=== PATIENT | female | born 1965 | race Caucasian/White ===

== ENCOUNTER 2021-03-15 11:34 | Emergency (ER) | payer OTHER, SELFPAY ==
[2021-03-15 11:41] VITALS: BP 141/68; PULSE 82; RESP 16; TEMP 36.6; O2SAT 96
--- NOTE | 2021-03-15 12:00 | DI.RAD_ITS ---
Exam(s) XR HAND RT COMPLETE EXAM: XR HAND RT COMPLETE CLINICAL HISTORY: jammed 3rd digit, dip pain. TECHNIQUE: 2D digital imaging was performed. COMPARISON: No exams were available for comparison FINDINGS: BONES: No acute fracture is present. No bony destructive lesion is seen. JOINTS: No dislocation present. interphalangeal joint space narrowing and periarticular spurring. SOFT TISSUE: Normal. IMPRESSION: Degenerative changes. No evidence of fracture. DATA REPOSITORY: RADIATION DOSE DELIVERED:
--- NOTE | 2021-03-15 12:13 | ED.GENADUL_ITS ---
Discharge Plan Disposition Patient Disposition: HOME Condition: Stable Discharge Details Chief Complaint: Orthopedic Clinical Impression: Finger injury Primary Care Provider: None,None ED Provider: Fidencio Metz Home Meds and New Rx's Prescriptions: No Action No Known Home Meds RF: 0 Discharge Instructions Instructions: Finger Sprain (ED) Additional Instructions: Wear splint as needed, advance activity as tolerated. Cool and/or warm compresses every 2 hours for 20 minutes. [id number] medications as Tylenol and/or Motrin as directed for discomfort. Please watch for new or worsening symptoms and return to the ER for any concerns. If symptoms persist for 3-5 days, I do recommend reaching out your primary care provider to discuss outpatient reevaluation. Medical Decision Making 55-year-old female presents after injuring her finger jamming it into the wood on Sunday. Neuro, vascular, tendon intact. Skin intact. No signs of infection. Diffuse discomfort and swelling to the DIP joint of the third right digit. Will obtain x-ray and reassess X-ray reveals degenerative changes, no acute fracture. Discussed findings with patient. Placed into a finger splint. Standard discharge and return precautions given. This documentation was generated using [employer] dictation system, please disregard any oddities of phrase or misspellings. Imaging Data Radiologic Study: Attestation: I personally reviewed and interpreted this imaging study as follows: Imaging: X-Ray Radiologist's impression: XR HAND RT COMPLETE EXAM: XR HAND RT COMPLETE CLINICAL HISTORY: jammed 3rd digit, dip pain. TECHNIQUE: 2D digital imaging was performed. COMPARISON: No exams were available for comparison FINDINGS: BONES: No acute fracture is present. No bony destructive lesion is seen. JOINTS: No dislocation present. interphalangeal joint space narrowing and periarticular spurring. SOFT TISSUE: Normal. IMPRESSION: Degenerative changes. No evidence of fracture. HPI General Mode of arrival: ambulatory . Date/Time Provider Initiated Documentation: 03/15/21 11:51 . Limitations to Documentation: no limitations . Information obtained by: patient . HPI Narrative: This is a 55-year-old female, [id number], denies significant past medical history, presenting for right middle finger injury. Patient states that on Sunday she was stacking wood, jammed her finger, did not notice much pain at the time but woke up the next morning with increased pain and swelling. She has taken [id number] Motrin with mild relief. She denies any sliver or break of the skin. Denies redness, warmth, fever. Reports the pain is mild at rest but worse with movement and does radiate up her hand with movement. Denies numbness, tingling, weakness. Denies any other injuries. Related Data Home Medications Medication Instructions Recorded Confirmed Unknown [No Known Home Meds] 03/15/21 03/15/21 Allergies Allergy/AdvReac Type Severity Reaction Status Date / Time tramadol Allergy Intermediate Hives Unverified 03/15/21 11:47 oxycodone AdvReac Intermediate Unverified 03/15/21 11:46 General Stated Complaint: Orthopedic AFSANEH: 4 Review of Systems Constitutional Constitutional: Denies fever(s) Musculoskeletal Musculoskeletal: Denies deformity, Reports arthralgias, Reports joint swelling, Denies numbness, Reports stiffness and Denies tingling Integumentary/Breasts Skin/Breast: Denies rash Neurologic Neurologic: Denies numbness and Denies tingling [facility], LAT[facility] Social History Smoking/Tobacco Use Status: Current every day Tobacco Type: cigarettes Smoking risk assessment performed?: Yes Alcohol Intake: never Substance use type: does not use Exam Const General: cooperative, healthy appearing, comfortable and no acute distress Orientation: alert and awake [facility] Head: normal to inspection, normocephalic and atraumatic Eyes General: appearance normal, both eyes and all related structures Conjunctivae: conjunctivae normal Neck Neck: normal visual inspection, trachea midline and supple Resp Effort & Inspection: normal respiratory effort and able to speak in complete sentences Cardio Rate: regular rate Rhythm: regular rhythm Skin General skin exam: no rashes or lesions noted Neuro General: patient alert, patient awake, moves all extremities and no focal motor deficits Cognition: normal cognition Speech: speech normal Gait: normal gait Motor: muscle tone normal throughout Sensory Exam: no sensory deficits noted Extrem General: full ROM and capillary refill normal Other: Right upper extremity, left third digit, DIP joint with mild swelling and discomfort to palpation worse on the medial aspect. 5 out of 5 strength. Skin intact. No warmth or erythema. Neuro, vascular, tendon intact. Normal radial pulse and capillary refill. Psych Appearance: grossly normal Mental Status: mental status grossly normal Course Vital Signs Vital signs: Vital Signs Temperature 36.6 C 03/15/21 11:41 Pulse 82 03/15/21 11:41 Respiratory Rate 16 03/15/21 11:41 Blood Pressure 141/68 H 03/15/21 11:41 Pulse Oximetry 96 03/15/21 11:41 Temperature 36.6 C 03/15/21 11:41 Temperature Source Skin 03/15/21 11:41 Pulse 82 03/15/21 11:41 Respiratory Rate 16 03/15/21 11:41 Respiratory Effort Non-Labored 03/15/21 11:41 Blood Pressure 141/68 H 03/15/21 11:41 Blood Pressure Position Sitting 03/15/21 11:41 Pulse Oximetry 96 03/15/21 11:41 Oxygen Delivery Method Room Air 03/15/21 11:41 Oxygen Flow Rate 0 03/15/21 11:41 Pain Level 3 03/15/21 11:48
== END 2021-03-15 13:13 | disposition home or self-care (01) ==
PROVIDERS: Emergency Provider Physician Assistant
DX: S69.81XA Other specified injuries of right wrist, hand and finger(s), initial encounter (principal); W22.8XXA Striking against or struck by other objects, initial encounter
CPT/HCPCS: 99283; 73130

== ENCOUNTER 2021-06-20 09:40 | Outpatient (CLI) | payer OTHER, SELFPAY ==
--- NOTE | 2021-06-20 09:30 | RT.EKG_ITS ---
APPROVED REPORT Exam: Resting ECG Reason for Exam: Chest pain Patient Location: O HR:75 bpm ECG Measurements Heart Rate 75 AXIS NJ 143 P 17 QRSd 86 QRS 57 QT 371 T 36 QTc 416 Conclusion Sinus rhythm...normal P axis, V-rate 60- 99 Poor R wave progression
== END 2021-06-20 09:41 | disposition home or self-care (01) ==
LOC: DI.CM 09:40
PROVIDERS: Visit Provider Nurse Practitioner Family
DX: R07.9 Chest pain, unspecified (principal)
CPT/HCPCS: 93010

== ENCOUNTER 2021-06-20 15:03 | Outpatient (REF) | payer OTHER, SELFPAY ==
[2021-06-20 16:38] LABS: Abs Immature Grans 0.02 10^3/uL (0.0-0.06); Absolute Basophil Count 0.03 10^3/uL (0.0-0.2); Absolute Lymphocyte Count 2.26 10^3/uL (1.2-3.4); Absolute Monocyte Count 0.55 10^3/uL (0.1-0.8); Absolute Neutrophil Count 2.66 10^3/uL (1.2-6.7); Basophils % 0.5; Eosinophils % 1.8; HCT 45.7 % (36.0-46.0); HGB 15.8 g/dL (11.2-15.7); Immature Grans % 0.4; Lymphocytes % 40.2; MCHC 34.6 % (32.0-36.0); MCV 89.8 fL (80-95); MPV 10.3 fL (8.0-11.0); Monocytes % 9.8; Neutrophils % 47.3; Nucleated RBC 0 %; Platelet Count 280 10^3/uL (130-400); RBC 5.09 10^6/uL (3.93-5.22); RDW 12.3 % (11.7-14.6); RDW-SD 40.8 fL; WBC 5.62 10^3/uL (4.4-10.8)
[2021-06-20 16:59] LABS: Bilirubin Negative (Negative); Blood Trace-intact (Negative); Clarity Clear (Clear); Glucose Negative (Negative); Ketones Negative (Negative); Leukocyte Esterase Negative (Negative); Nitrite Negative (Negative); Urobilinogen 0.2 EU/dL (Up TO 0.2)
[2021-06-20 17:05] LABS: Bacteria Few HPF (Negative); C & S Indicated? No/Sq. Contamination; Casts Negative LPF (Negative); Crystals Negative HPF (Negative); Epithelial Cells Moderate HPF (Negative); Mucus Negative (Negative)
[2021-06-20 17:27] LABS: ALT 22 U/L (14-59); AST 13 U/L (15-37); Albumin 4.2 g/dL (3.4-5.0); Alkaline Phosphatase 58 U/L (46-116); Anion Gap 9.1 mmol/L (3-11); BUN 12 mg/dL (7-18); Bilirubin, Total 0.6 mg/dL (0.2-1.0); CO2 25.9 mmol/L (21.0-32.0); CREATININE 0.8 mg/dL (0.55-1.02); Chloride 105 mmol/L (98-107); Glucose 88 mg/dL (74-106); Lipase 53 U/L (73-393); Potassium 4.6 mmol/L (3.5-5.1); Sodium 140 mmol/L (136-145); Total Protein 7.5 g/dL (6.4-8.2)
== END 2021-06-20 15:04 | disposition home or self-care (01) ==
LOC: NCHCN 15:03
PROVIDERS: Visit Provider Nurse Practitioner Family
DX: R10.9 Unspecified abdominal pain (principal); R39.9 Unspecified symptoms and signs involving the genitourinary system
CPT/HCPCS: 80053; 83690; 81003; 81015; 85025

== ENCOUNTER 2021-06-22 01:08 | Outpatient (CLI) | payer OTHER, SELFPAY ==
--- NOTE | 2021-06-22 07:30 | DI.MAMMO_ITS ---
Exam(s) MAMMO SCREENING EXAM: MAMMO SCREENING CLINICAL HISTORY: screening,z12.39 TECHNIQUE: Mammograms were interpreted according to the usual protocol including computer analysis w [employer] CAD system, tomosynthesis and C-view imaging. COMPARISON: FINDINGS: Breasts are of heterogeneously increased density with fairly symmetrical distribution of fibroglandul ar tissue. No dominant mass or clumped microcalcification is identified in either breast. Today's e xamination is a baseline examination. There is of focal area of nodularity projected in the posterior central breast parenchyma on the MLO view of the right breast. This may correspond to an area of rounded radiodensity seen on tomosynthes is views only in the central lateral portion of the right breast on CC view. Additional mammographic views and breast ultrasound are requested to characterize this possible small mass. IMPRESSION: Additional mammographic views of the right breast and right breast ultrasound are requested as descri bed above to evaluate possible small well-circumscribed right breast mass. BI-RADS Category 0 - Assessment Incomplete: Need additional imaging evaluation Breast Density - Category C - Heterogeneously dense
== END 2021-06-22 01:28 ==
PROVIDERS: Visit Provider Nurse Practitioner Family
DX: Z12.31 Encounter for screening mammogram for malignant neoplasm of breast (principal); R92.8 Other abnormal and inconclusive findings on diagnostic imaging of breast
CPT/HCPCS: 77063; 77067

== ENCOUNTER 2021-07-06 00:47 | Outpatient (CLI) | payer OTHER, SELFPAY ==
--- NOTE | 2021-07-06 13:30 | DI.MAMMO_ITS ---
Exam(s) MG MAMMO SCREEN CALL BACK UNI US BREAST RT COMPLETE EXAM: MG MAMMO SCREEN CALL BACK UNI and U/S breast RT limited CLINICAL HISTORY: RT BREAST MASS. TECHNIQUE: Craniocaudal and mediolateral oblique Full Field Digital Mammography views of the right b reast with Computer Aided Diagnosis followed by Tomosynthesis and right breast ultrasound. COMPARISON: Priors available for comparison. FINDINGS: Mammography/Tomosynthesis: Masses/Architectural Distortion: On the spot compression CC view the ovoid density in the outer right breast persists. Microcalcifictions: No suspicious pleomorphic-type are seen. Skin Thickening/Nipple Retraction: None. Right breast US: The upper outer quadrant of the right breast was evaluated sonographically. Echotexture: Normal appearance of the glandular tissue. Shadowing: No suspicious foci. Cyst: At the 9 o'clock position of the right breast there is a 5 x 4 x 2 mm cyst present. At the 10 o'clock position 3 cm from the nipple there is a 5 x 6 x 4 mm simple cyst. At the 12 o'clock positio n 1 cm from the nipple there is a 5 x 4 x 5 mm well-circumscribed hypoechoic nodule present. No inte rnal blood flow is seen. There is a collection of cysts at the 11 o'clock position of the right azar st 3 cm from the nipple. Solid lesions: None seen. Ductal dilation: None. IMPRESSION: 1. No definite evidence for malignancy at this time. 2. A six-month follow-up right mammogram and ultrasound are requested for re-evaluation. 3. The findings were discussed with the patient on the date of the examination. BI-RADS Category 3 - 6 month - Probably Benign Finding: Recommend follow-up imaging in 6 months Breast Density - Category C - Heterogeneously dense Breast density Category C or D implies that the patient has dense breast tissue. Dense breast tissue can make it harder to find cancer on a mammogram. Dense breast tissue is also associated with an incr eased risk of breast cancer. This information about the result of the mammogram report was provided to the patient to raise their awareness. Use this report when you speak with the patient about their risks for breast cancer, which includes their family history. At that time, you may recommend additional screening tests (Ultrasoun d or MRI) as these tests may add significant information. A negative radiographic report should not delay biopsy if a dominant or clinically suspicious mass is present. Up to ten percent of cancers are not identified on mammography. A negative report may reinforce clinical impression. Adenosis and dense breasts may obscure an underlying neoplasm. False positive reports average 6 to 10%. Patient will receive a letter notifying them of these results.
== END 2021-07-06 01:07 ==
PROVIDERS: PCP Family Medicine; Visit Provider Nurse Practitioner Family
DX: R92.8 Other abnormal and inconclusive findings on diagnostic imaging of breast (principal); N60.01 Solitary cyst of right breast; N63.15 Unspecified lump in the right breast, overlapping quadrants
CPT/HCPCS: 76642; 77063; 77067

== ENCOUNTER 2021-08-03 18:20 | Outpatient (REF) | payer OTHER, SELFPAY ==
[2021-08-04 16:34] LABS: COVID-19 RT-PCR UVMMC Result Negative (Negative)
== END 2021-08-03 18:21 | disposition home or self-care (01) ==
LOC: LBN 18:20
PROVIDERS: PCP Family Medicine; Visit Provider Physician Assistant Medical
DX: Z20.822 Contact with and (suspected) exposure to COVID-19 (principal); R05.8 Other specified cough; R09.89 Other specified symptoms and signs involving the circulatory and respiratory systems; J32.9 Chronic sinusitis, unspecified
CPT/HCPCS: U0003

== ENCOUNTER 2021-11-04 02:00 | Outpatient (CLI) | payer OTHER, SELFPAY ==
[2021-11-04 14:42] LABS: Source Nasal/Nares
[2021-11-04 19:20] LABS: COVID-19 PCR Negative (Negative)
== END 2021-11-04 02:01 | disposition home or self-care (01) ==
LOC: LBO 02:00
PROVIDERS: Surgery; PCP Family Medicine; Visit Provider Surgery
DX: Z20.822 Contact with and (suspected) exposure to COVID-19 (principal)
CPT/HCPCS: 87635

== ENCOUNTER 2021-11-07 07:21 | Day surgery (SDC) | payer OTHER, SELFPAY ==
--- NOTE | 2021-11-07 06:37 | COLE_ITS ---
Colonoscopy Report Date of procedure: 11/07/21 Pre-op diagnosis general: Colon Cancer Screening and Family history Post-op diagnosis procedure note: other (gastritis, reflux, polyps and diverticulosis) Procedure: Colonoscopy Surgeon: Marci Christian Anesthesia Type: General:No Airway Estimated blood loss (mL): 3 Pathology: other (Duodenal, gastroic and GE junction bx; ascending, transverse and sigmoid polyps) Complications: None Disposition: same day Indications: Pt seen at the request of PCP regarding colon cancer screening. Pt has never had a colon cancer screening before.? Denies problems with constipation, diarrhea.? No pain or difficulty with bowel movements.? Denies rectal bleeding.? Mother has CRC cancer.? ? Pt has not had any weight loss.? Their appetite is good.? No heart, lung, or kidney problems. No heartburn or indigestion. No prior colo- rectal surgery.? No prior NELLY.? No problems with anesthesia in the past. pt notes she has been passing gas more lately.? she has had x2 C-sections and NELLY.? She has lots of scar tissue in pelvis.? +smoker? occ PONV w/ anethesia.? H/I if she eats spicy foods.? She had h pylori in the past.? She notes occ H/I.? occ notes a bump on the distant from the anus.? comes/goes.? ? denies bleedin g/pain/discharge.? ?screening colonosocpy consultation. There is a family history of colon cancer +. Prep: Miralax/Dulcolax Procedure Start Time: 09:18 Procedure End Time: 09:49 Retraction Time: 16 minutes Findings: Inflammation of the small bowel and antrum Evidence of reflux Multiple polyps Sigmoid diverticulosis Procedure Description: After informed consent was obtained the patient was take to the procedure room and placed in a supine position. Monitors were applied and a time out was done. The patients name, date of , procedure type, allergies to medication s and metal in their body was reviewed. A bite block was placed and the patient was sedated. Once sedated and comfortable the gastroscope was advanced through the oropharynx which was grossly normal into the esophagus. The proximal and mid- esophagus were normal. In the distal esophagus there was evidence of reflux noted. The scope was advanced into the stomach and through the pylorus into the 3rd portion of the duodenum. The duodenum was noted to have some mild inflammation in the 1st portion. Biopsies were done. The scope was retracted back into the stomach. There was mild inflammation noted in the antrum. Biopsies were done to rule out H. pylori. There were no ulcers. The scope was retro- flexed. The cardia and fundus were noted to be normal. There was no hiatal hernia noted. The scope was retracted back into the esophagus and biopsies were done of the GE junction to rule out Mckenna's. The Z line was regular. The GE junction was at 38 cm. While the patient was still sedated they were placed in a left decubitous position. A rectal exam was done. External exam was normal. Internal exam revealed a normal sphincter tone and no palpable masses. The scope was then introduced and retro-flexed. Grade 1 internal hemorrhoids were identified. There were no masses or polyps identified on retroflexion. The scope was then advanced to the cecum without difficulty. The ileocecal valve and appendiceal orifice were identified. The prep was good. The scope was then slowly retracted over 16 minutes back into the rectum. Polyps were removed with cold forceps in the ascending colon x1, transverse colon x1, sigmoid colon x4. There was mild sigmoid diverticulosis noted. The scope was removed and the patient was woken up and taken back to Same day surgery in stable condition. The patient tolerated the procedure well and there were no immediate complications. Follow up: 3-5 years depending on pathology results
--- NOTE | 2021-11-07 06:38 | W.PM.DSUDISC ---
Discharge Plan Disposition Patient Disposition: HOME Condition: Good Discharge Details Reason For Visit: Colonoscopy Attending Provider: Marci Christian Primary Care Provider: Arcadio Thomas Home Meds and New Rx's Prescriptions: Continued omeprazole 20 mg capsule,delayed release(DR/EC) 20 mg PO DAILY Qty: 30 1RF Rx Instructions: Take 1 capsule daily Discharge Instructions Instructions: Colorectal Polyps (DC), Diverticulosis (DC), Diet for Stomach Ulcers and Gastritis (ED), Gastritis (DC), GERD (Gastroesophageal Reflux Disease) (DC) Additional Instructions: Findings: inflammation in the stomach and reflux Polyps and diverticulosis Follow up: 3-5 years Please call if you develop: fevers >101.5 Nausea or Vomiting Abdominal pain that is not transient Rectal bleeding that is more then a tbsp A hard abdomen and inability to pass gas DAY SURGERY UNIT POST ENDOSCOPY INSTRUCTIONS Instructions for everyone who is given Anesthesia: For your safety, please do the following for the next 24 Hours: a. Do not drive or operate dangerous equipment b. Do not drink alcohol beverages or use any recreational drugs for the first 24 hours or while taking pain medications. The medications in your body may have a reaction that can be dangerous. c. Do not make any important decisions or sign any important papers 1. Generally there are no restrictions on your activity after a day or so has gone by, but you may feel a bit fatigued for a few days. 2. After you arrive home you may have a light meal and return to a normal diet as you can tolerate it without feeling sick to your stomach. 3. After surgery, you may feel pain or discomfort. This should be only transient, but if it persists please contact your doctor. 4. If there are any questions regarding the findings of your procedure, please feel free to contact your doctor. 6. If you are unable to contact your doctor with a problem, contact the hospital at [phone]. 7. Continue all your regular medications unless directed otherwise. I understand the above instructions and have no questions. Signature of Patient or Responsible Adult Escort Date/Time Name of Responsible Adult Escort Signature of Nurse Date/Time Activity:: Activity as Tolerated Diet:: high fiber Discharge Orders Discharge Orders: Discharge Order (Routine); Ordered 11/07/21 Ordered By: Marci Christian
[2021-11-07 07:43] VITALS: BP 130/69; PULSE 96; RESP 18; TEMP 36.5; O2SAT 98
[2021-11-07] MEDS: Lactated Ringers 1,000 ML 80 ML IV (08:01)
--- NOTE | 2021-11-07 09:05 | ANES.PREOP_ITS ---
General Info Date of Service Date Performed: 11/07/21 Height: 5 ft 3 in Weight: 85.445 kg Body Mass Index (BMI): 33.3 Surgical Procedure: Operation Date: 11/07/21 09:05 Proposed Procedure Side Surgeon p Colonoscopy/Gastroscopy Marci Christian MD Meds Allergies and Home Medications Allergies Allergy/AdvReac Type Severity Reaction Status Date / Time tramadol Allergy Intermediate Hives Verified 11/07/21 07:47 oxycodone AdvReac Intermediate Verified 11/07/21 07:47 Home Medication Medication Instructions Recorded omeprazole 20 mg capsule,delayed 20 mg PO DAILY #30 cap 06/20/21 release Current Visit Medications: Current Medications Generic Name Dose Route Start Last Admin Trade Name Freq PRN Reason Stop Dose Admin Hyoscyamine Sulfate 0.125 mg 11/07/21 06:39 Hyoscyamine 0.125 Mg Sl/Oral/Chew SL DIRECTED PRN Ringer's Solution 1,000 mls @ 80 mls/hr 11/07/21 06:00 11/07/21 08:01 IV 12/04/21 23:59 80 mls/hr INFUSION MICHAEL Administration IV Miscellaneous Supplies 1 each 11/07/21 06:00 Iv Access IV 12/04/21 23:59 DIRECTED MICHAEL Ondansetron HCl 4 mg 11/07/21 06:39 Ondansetron 4 Mg/2 Ml Vial IVP Q4H PRN PRN Nausea / Vomiting Sodium Chloride 0 ml 11/07/21 06:00 Normal Saline Flush 10 Ml Syr IV 12/04/21 23:59 PRN PRN Sodium Chloride 0 ml 11/07/21 06:00 Normal Saline 10 Ml Vial IJ 12/04/21 23:59 DIRECTED PRN Sterile Water 0 ml 11/07/21 06:00 Water,Injection,Sterile 10 Ml Vial IJ 12/04/21 23:59 DIRECTED PRN PFSH Active Problems Active Problems: Problem Status Onset Code Personal history of nicotine dependence Z87.891 Screening for colon cancer Z12.11 Medical History Medical History COVID-19 09/05/21 GERD (gastroesophageal reflux disease) History of deviated nasal septum s/p sx Surgical History Surgical History History of X 2 Hx of nasal septoplasty S/P NELLY-BSO in [place]- benign etiology Tobacco Smoking/Tobacco Use Status: Current-Occasional Tobacco Type: cigarettes Second hand exposure: Yes Alcohol Alcohol Intake: former Substance Use Substance use: Never Substance use type: does not use Vital Signs and Lab Results Vital Signs Most Recent Vital Signs in EMR: Most Recent Vital Signs Temp Pulse Resp BP Pulse Ox 36.5 C 96 H 18 130/69 98 11/07/21 07:43 11/07/21 07:43 11/07/21 07:43 11/07/21 07:43 11/07/21 07:43 Lab Results Blood Type / Crossmatch: No Data to Display Complete Blood Count: No Data to Display Complete Metabolic Panel: No Data to Display Liver Function Panel: No Data to Display Coagulation Panel: No Data to Display Cardiac Panel: No Data to Display Arterial Blood Gas: No Data to Display Venous Blood Gas: No Data to Display Pancreas Panel: No Data to Display Thyroid Panel: No Data to Display Infectious Disease: Coronavirus (COVID-19)(PCR) Negative (Negative) 11/04/21 07:50 11/04/21 Coronavirus 2019 Source Nasal/Nares 11/04/21 07:50 11/04/21 Blood Cultures: No Data to Display Toxicology Panel: No Data to Display Anesthesia Assessment and Plan Anesthesia History Personal History: No History of Anesthesia Complications Family History: No Family History of Anesthesia Complications Exercise Tolerance Exercise Tolerance: Metabolic Equivalents>4 Pertinent Negatives Pertinent Negatives: No Symptoms of GERD Cardiac & Pulmonary Exam Cardiac Exam: Normal S1/S2 Heart Sounds Pulmonary Exam: Clear Bilateral Breath Sounds Implantable Cardiac Device Does patient have a Pacemaker or an ICD?: No Airway Exam Known Difficult Airway: No Mallampati Class: 2 Mouth Opening: Normal (> 3cm) Thyromental Distance: Greater than 3 cm Neck Range of Motion: Full ROM Neck Circumference: Thick Teeth Condition: Normal Dentition ASA Classification ASA Score: ASA 2 Emergency Case?: No NPO Status NPO Status: NPO Clears >2 hours, Solids >8 hours Anesthesia Plan Resuscitation Status: Full Code Anesthesia Technique: General Anesthesia Airway Planned: Natural Airway Monitors Used: Standard Monitors
[2021-11-07 09:07] VITALS: BMI 33.3
--- NOTE | 2021-11-07 09:20 | BOWEL_PTH ---
PATIENT: Ana Laura Coley LOC: [facility] U#:[id number] AGE/SX: 56/F ROOM: RE11/07/[address]: Marci Christian MD : [id number] BED: DIS: 11/07/2021 SPEC #: [id number] RECD: 11/07/21 12:49 STATUS: DWIGHT RE #: [id number] ADITI: 11/07/21 09:[address]: Marci Christian DEPT: Surgical Specimen RECD BY: Marianna Spann ENTERED: 11/07/21 12:52 SP TYPE: Bowel OTHR DR: Arcadio Thomas Tissues: 1 - BIOPSY BOWEL 2 - STOMACH BIOPSY 3 - ESOPHAGUS BIOPSY 4 - BIOPSY BOWEL 5 - BIOPSY BOWEL 6 - BIOPSY BOWEL Procedures: GROSS AND MICRO LEVEL 4 IMMUNOPEROXIDASE STAIN Comments: [id number]
[2021-11-07 09:59] VITALS: BP 103/73; PULSE 83; RESP 18; TEMP 36; O2SAT 95
[2021-11-07 10:32] VITALS: BP 136/78; PULSE 69; RESP 18; TEMP 36; O2SAT 99
--- NOTE | 2021-11-07 10:40 | W.ANESPOSTOP ---
Postoperative Evaluation Date, Time and Location Date Performed: 11/07/21 Time Performed: 10:32 Patient Location: Day Surgery Unit Vital Signs Most Recent Imported Vital Signs: Most Recent Vital Signs Temp Pulse Resp BP Pulse Ox 36.0 C L 69 18 136/78 99 11/07/21 10:32 11/07/21 10:32 11/07/21 10:32 11/07/21 10:32 11/07/21 10:32 Pain Score Most Recent Pain Score: Most Recent Pain Score Pain Level 0 11/07/21 10:32 Assessment Mental Status: Awake (Alert & Oriented to Patient Baseline) Airway and Respiratory Function: Patent airway with normal (patient baseline) respiratory exam Cardiovascular Function: Hemodynamically Stable Hydration Status: Adequately Hydrated Nausea & Vomiting: No Nausea or Vomiting Pain: Pt. Denies Any Pain Peripheral Nerve Block: Patient did not receive a nerve block
== END 2021-11-07 10:51 | disposition home or self-care (01) ==
LOC: SUR 07:22
PROVIDERS: PCP Family Medicine; Visit Provider Surgery
PROC: (CPT 45380; principal; 2021-11-07 09:00)
DX: Z12.11 Encounter for screening for malignant neoplasm of colon (principal); Z80.0 Family history of malignant neoplasm of digestive organs; K29.70 Gastritis, unspecified, without bleeding; K21.9 Gastro-esophageal reflux disease without esophagitis; K63.5 Polyp of colon; K57.30 Diverticulosis of large intestine without perforation or abscess without bleeding; K64.0 First degree hemorrhoids; B96.81 Helicobacter pylori [H. pylori] as the cause of diseases classified elsewhere
CPT/HCPCS: 45380; 43239; 88305; 88361

== ENCOUNTER 2021-12-23 07:27 | Outpatient (REF) | payer OTHER, SELFPAY ==
[2021-12-26 13:54] LABS: Helicobacter pylori Ag, Feces Negative (Negative)
== END 2021-12-23 07:28 | disposition home or self-care (01) ==
LOC: LBN 07:27
PROVIDERS: Visit Provider Surgery
DX: K29.70 Gastritis, unspecified, without bleeding (principal); B96.81 Helicobacter pylori [H. pylori] as the cause of diseases classified elsewhere
CPT/HCPCS: 87338

== ENCOUNTER → 2022-01-05 01:21 | Outpatient (CLI) | payer OTHER, SELFPAY ==
--- NOTE | 2022-01-05 09:00 | DI.US_ITS ---
Exam(s) MG MAMMO DIAGNOSTIC UNI US BREAST RT COMPLETE EXAM: MG MAMMO DIAGNOSTIC UNI-RIGHT AND COMPLETE RIGHT BREAST ULTRASOUND CLINICAL HISTORY: 3-6 mo f/u abnormal mammo of rt,abnl mammo,r92.8,z09. TECHNIQUE: Both CC and MLO views/mammographic images of the right breast were obtained with 3D tomos ynthesis technique and utilizing computer aided detection (CAD). COMPARISON: Prior mammograms were reviewed, the most recent being July 2021. Prior ultrasound July 2021 was also reviewed FINDINGS: DIAGNOSTIC RIGHT BREAST MAMMOGRAM: On the 3D MLO view there is an oval noncalcified nodule measuring 6 by 5 millimeters, approximately 6 cm in from nipple, less evident on the CC view. Also subtle suggestion of a slightly smaller noncal cified nodule more centrally on the MLO view. No other focal right breast mammographic findings. COMPLETE RIGHT BREAST ULTRASOUND: All 4 quadrants were scanned as well as the retroareolar region and right axilla. Compared to ultrasound of 07/06/2021. There are a total of 4 focal ultrasound findings: At the 11-12 o'clock position (2 cm from nipple) there is a lobulated slightly taller than wider 6 x 5 millimeter nodule exhibiting slightly increased through transmission but exhibiting solid internal echoes. This probably corresponds to one of the nodules seen on the MLO view. It exhibits minimal if any significant change from 07/06/2021. At the 9 o'clock position (4 cm from nipple) there is a round 4 x 4 millimeter microcyst which is unc hanged. At the 10 o'clock position there is a small wider than taller benign-appearing finding which has an a ppearance consistent with conglomeration of microcysts or septated microcyst, this measuring 5 by 3 m illimeters. At the 10 o'clock position there is another finding which was not evident on the prior ultrasound of July 2021. This is a slightly wider than taller oval nodule measuring 4 x 3 millimeters with angie ght back wall and slightly increased through transmission but exhibiting internal echoes. There are no other focal ultrasound findings in all 4 quadrants of the right breast. There is no significant adenopathy in the right axilla. IMPRESSION: 1. Findings on ultrasound as described individually above (total of 4 findings). Two of these are vi sible on mammography. 2. Appropriate follow-up is repeat ultrasound examination in 3 months to determine stability of these findings, particularly the finding at the 11-12 o'clock position and the more solid-appearing new fi nding at the 10 o'clock position. 3. Given that these findings are better seen on ultrasound than 3D mammography, I feel would be prude nt that her follow-up ultrasound in 3 months from now be a bilateral ultrasound study. The patient was informed of the findings and follow-up recommendations prior to leaving the [facility] today. BI-RADS Category 3 - 6 month - Probably Benign Finding: Recommend follow-up ULTRASOUND in 3 months Breast Density - Category B - Scattered areas of fibroglandular density Breast density Category C or D implies that the patient has dense breast tissue. Dense breast tissue can make it harder to find cancer on a mammogram. Dense breast tissue is also associated with an incr eased risk of breast cancer. This information about the result of the mammogram report was provided to the patient to raise their awareness. Use this report when you speak with the patient about their risks for breast cancer, which includes their family history. At that time, you may recommend additional screening tests (Ultrasoun d or MRI) as these tests may add significant information. A negative radiographic report should not delay biopsy if a dominant or clinically suspicious mass is present. Up to ten percent of cancers are not identified on mammography. A negative report may reinforce clinical impression. Adenosis and dense breasts may obscure an underlying neoplasm. False positive reports average 6 to 10%. Patient will receive a letter notifying them of these results.
== END ==
PROVIDERS: Visit Provider Nurse Practitioner Family
DX: R92.8 Other abnormal and inconclusive findings on diagnostic imaging of breast (principal); N63.11 Unspecified lump in the right breast, upper outer quadrant; N60.11 Diffuse cystic mastopathy of right breast
CPT/HCPCS: 76642; 77061; 77065; G0279

== ENCOUNTER 2022-07-10 09:01 | Emergency (ER) | payer OTHER, SELFPAY ==
[2022-07-10 09:03] VITALS: BP 143/83; PULSE 119; RESP 17; TEMP 36.9; O2SAT 98
--- NOTE | 2022-07-10 09:45 | DI.CT_ITS ---
Exam(s) CT ABDOMEN PELVIS W EXAM: CT ABDOMEN PELVIS W CLINICAL HISTORY: epigastric and left sided abdominal pain. TECHNIQUE: Imaging Protocol: Axial computed tomography images with coronal and sagittal reformatted images were created and reviewed CONTRAST MATERIAL: Intravenous: Omnipaque 350 Contrast volume:100 ml Oral: no COMPARISON: No exams were available for comparison FINDINGS: ABDOMEN: Lung Bases: Normal where visualized. Liver: Normal density. No measurable mass. Gallbladder and biliary tract: No radiodense calculus or dilation. Pancreas: Normal density, no abnormal calcifications or inflammatory process. Spleen: Normal. Kidneys: Normal size, contour and axis. No radiodense stones or obstructive uropathy. No masses seen. Incidental retroaortic left renal vein. Adrenal glands: No masses seen. Abdominal Aorta: Abdominal portion non-dilated. PELVIS: Bladder: No gross wall thickening. No calculi.No focal mass. Bowel: Mild sigmoid diverticulosis. No obstruction or bowel wall thickening. Appendix normal. Peritoneal cavity: No ascites, collection or mesenteric inflammatory response. Bones: Within normal limits for age. Reproductive organs: Status post hysterectomy. Lymph nodes: Unremarkable. Impression: Unremarkable CT scan of the abdomen and pelvis. RADIATION DOSE DELIVERED: 1,086.43mGy.cm Total DLP DATA REPOSITORY: All CT scans at this facility are submitted to the National Radiology Data Registry (NRDR) Dose Index Registry (DIR) with the [employer] (ACR). RADIATION OPTIMIZATION: All CT scans at this facility use at least one of these dose optimization te chniques: automated exposure control; mA and/or kV adjustment per patient size (includes targeted exa ms where dose is matched to clinical indication); or iterative reconstruction.
--- NOTE | 2022-07-10 09:45 | RT.EKG_ITS ---
APPROVED REPORT Exam: Resting ECG Reason for Exam: abdominal pain Patient Location: E HR:78 bpm ECG Measurements Heart Rate 78 AXIS AK 163 P 72 QRSd 77 QRS 46 QT 363 T 34 QTc 414 Conclusion Sinus rhythm...normal P axis, V-rate 60- 99
--- NOTE | 2022-07-10 09:46 | ED.GENADUL_ITS ---
Discharge Plan Disposition Patient Disposition: Home Condition: Stable Discharge Details Clinical Impression: Abdominal pain, Hematuria Primary Care Provider: Patricio Winston ED Provider: Slime Hernandez Home Meds and New Rx's Prescriptions: No Action No Known Home Meds Discharge Instructions Instructions: Abdominal Pain (ED) Additional Instructions: Your labs are reassuring here today. As we discussed, I am concerned that you may have recurrent gastritis based on history and discomfort. Please take the omeprazole that you have at home as previously prescribed. Please encourage hydration. Please follow-up with primary care in 1 to 2 weeks for reevaluation. If you develop fever/chills, increased pain, inability stay hydrated or other new/worsening symptom please seek care urgently once again. In regard to the small mount of blood in your urine, please discuss this further with your primary care. Referrals: Patricio Winston, [employer] [Primary Care Provider] - Discharge Data Discharge Date/Time-TO BE ENTERED AT DEPARTURE: 07/10/22 13:16 Medical Decision Making Patient is a pleasant 57-year-old female with past medical history of diverticulosis, presenting today with chief complaint of epigastric and left sided abdominal pain. She reports that she started having some upper abdominal discomfort about a month ago which lasted for a week. Had a few days where she felt well and then had recurrence of her pain which was more severe and lasted a few hours at that time. Yesterday, patient began having diarrhea. Reports that she had watery bowel movements x5 yesterday. No recent antibiotics. States that she has had 3 further today. All of which have been nonbloody. Denies any fevers or chills. No change in urinary habits. Denies any vaginal discharge. Patient has history of hysterectomy. Family history of colon cancer, had last colonoscopy in November. On exam, patient appears nontoxic. She is holding her abdomen. Appears well- hydrated. Lungs are clear, normal cardiac exam. She has some mild discomfort with left CVA percussion. Abdominal exam is pertinent for discomfort elicited with palpation of the epigastric and left side, just lateral to the umbilicus. She has no pain over McBurney's point. Negative Barrera sign. Pain is not wor sened with p.o. intake. No peritoneal findings. Consider potential diverticulitis, pancreatitis, gastritis, gastroenteritis, nephritis versus other. Will obtain baseline labs and CT abdomen. Patient declines any analgesics. Patient does not drink alcohol. No recent antibiotics. Labs reviewed. No leukocytosis. Stable H&H. CMP without abnormality. Troponin within normal limits. Lipase within normal limits. CMP significant for trace intact blood but no other abnormalities. She has had this before but I did encourage her to follow-up with her primary care about this. FINDINGS: ABDOMEN: Lung Bases: Normal where visualized. Liver: Normal density. No measurable mass. Gallbladder and biliary tract: No radiodense calculus or dilation.? Pancreas: Normal density, no abnormal calcifications or inflammatory process. Spleen: Normal. Kidneys: Normal size, contour and axis. No radiodense stones or obstructive uropathy. No masses seen. Incidental retroaortic left renal vein. Adrenal glands: No masses seen. Abdominal Aorta: Abdominal portion non-dilated. PELVIS:? Bladder:? No gross wall thickening. No calculi.No focal mass. Bowel: Mild sigmoid diverticulosis.? No obstruction or bowel wall thickening. Appendix normal. Peritoneal cavity: No ascites, collection or mesenteric inflammatory response. Bones: Within normal limits for age.? Reproductive organs: Status post hysterectomy.? Lymph nodes: Unremarkable.? Impression: Unremarkable CT scan of the abdomen and pelvis. Discussed findings with the patient. She did have an endoscopy at the same time she had a colonoscopy in November. She reports that at that time she was diagnosed with H. pylori. She states that she did complete the treatment regimen. States that she had initially felt better but now they are discussing it, the pain does feel similar to when she has had this issue historically. We will give her Mylanta and Protonix. She reports that she has done well on omeprazole in the past and does have more of this at home. I did encourage that she take this once again. I encourage close follow-up with primary care. Return precautions were discussed. All of her questions and concerns were addressed and she is in agreement this plan. Sign Out No HPI General Date/Time Provider Initiated Documentation: 07/10/22 09:11 . Limitations to Documentation: no limitations . Information obtained by: patient, RN notes reviewed and old records reviewed . History of Present Illness 57 year old F presents to the emergency department with the chief complaint of left sided abdominal pain, described as moderate, with intensity rated at 4. Quality is described as aching, and is localized to the abdomen. Patient reports no radiation. Patient started experiencing this week(s) and it has been constant. No relieving factors improve symptom(s), Eating worsens symptoms . Patient notes denies chest pain, cough, fever/chills, nausea/vomiting (loose BM), rash and shortness of breath. Patient did receive the following treatments prior to arrival, none Related Data Home Medications Medication Instructions Recorded Confirmed Unknown [No Known Home Meds] 07/10/22 07/10/22 Allergies Allergy/AdvReac Type Severity Reaction Status Date / Time tramadol Allergy Intermediate Hives Verified 07/10/22 09:11 oxycodone AdvReac Intermediate Verified 07/10/22 09:11 General Stated Complaint: Abd Prob AFSANEH: 3 Review of Systems Constitutional Constitutional: Reports as per HPI, Denies chills, Denies fatigue, Denies fever(s) and Denies headache(s) ENT Ears, Nose, Mouth, and Throat: Denies headache(s) Cardiovascular Cardiovascular: Reports as per HPI, Denies chest pain and Denies dyspnea Respiratory Respiratory: Reports as per HPI, Denies cough and Denies dyspnea Gastrointestinal Gastrointestinal: Reports as per HPI Musculoskeletal Musculoskeletal: Reports as per HPI and Denies back pain Integumentary/Breasts Skin/Breast: Reports as per HPI and Denies rash Neurologic Neurologic: Reports as per HPI and Denies headache(s) Endocrine Endocrine: Denies fatigue PFSH All Active Problems (Updated 07/10/22 @ 13:03 by KEENA Bryant) Abdominal pain (Acute) Hematuria (Acute) Abnormal mammogram of both breasts (Acute) Bilateral US recommended in 04/2022 for f/u per radiologogist Helicobacter pylori gastritis (Acute) 11/2021-EGD and biopsy, per general surgery at [facility], treated with triple therapy Sessile colonic polyp (Acute) 11/2021-due in 2026 Tubular adenoma of colon (Acute) Personal history of nicotine dependence (Acute) [id number]-year history Medical History COVID-19 09/05/21 GERD (gastroesophageal reflux disease) History of deviated nasal septum s/p sx Surgical History History of X 2 History of colonoscopy (~11/2021) Hx of nasal septoplasty S/P [facility] in [place]- benign etiology Family History Mother Colon cancer Heart disease Hypertension Stroke Father Cancer Heart disease Stroke Sister No problems noted. Son No problems noted. Daughter No problems noted. Social History Smoking/Tobacco Use Status: Current-Occasional Tobacco Type: cigarettes Quit status: has quit before Second Hand Exposure: Yes Smoking risk assessment performed?: Yes Alcohol Intake: former Drug use: Never Substance use type: does not use Caregiver/Support person: No Household members: significant other Housing: house Communication Needs: None Do you need help understanding health information?: Never Pets and animals: Yes Pets and animals: cat(s) Sexually active: Yes Do you think of yourself as: straight/heterosexual Current gender identity: female What is your relationship status?: How often do you talk on the phone with friends or family?: three or more times per week How often do you get together with friends or relatives?: three or more times per week How often do you attend adventism or hinduism services?: 1-3 times per year Do you belong to any clubs or organized social groups?: no Panel score (0-1 are the most socially isolated patients): 1 Cait/Jain: Caodaism Seatbelt use: sometimes Helmet use: Yes Helmet use: always Drive intox or ride w/intox new aut[employer] delivery driver: No Do you feel safe at home: Yes Do you feel safe in your relationship?: Yes Exam Const General: cooperative, healthy appearing, comfortable, no acute distress and well developed Nutritional Appearance: average body habitus and well nourished Orientation: alert and awake HENVA Head: normal to inspection Mouth: moist mucous membranes Resp Effort & Inspection: normal respiratory effort, able to speak in complete sentences and no respiratory distress Auscultation: clear to auscultation bilaterally, no rales, no rhonchi and no wheezes Cardio Rate: regular rate Rhythm: regular rhythm Heart Sounds: S1 normal and S2 normal GI Inspection: normal to inspection Palpation: soft, no hepatosplenomegaly, no guarding, no masses, not rigid, tender in the epigastrum, in the LLQ and in the LUQ and No ascites Back/Spine/Pelvis Back: CVA tenderness (left) Skin General skin exam: no rashes or lesions noted Trauma: no lacerations or abrasions Neuro General: patient alert and patient awake Cognition: normal cognition Speech: speech normal Gait: normal gait Psych Appearance: grossly normal and well kempt Mental Status: mental status grossly normal Speech and Movement: speech and movement normal Course Vital Signs Vital signs: Vital Signs Temperature 36.9 C 07/10/22 09:03 Pulse 119 H 07/10/22 09:03 Respiratory Rate 17 07/10/22 09:03 Blood Pressure 143/83 H 07/10/22 09:03 Pulse Oximetry 98 07/10/22 09:03 Temperature 36.9 C 07/10/22 09:03 Temperature Source Temporal Artery Scan 07/10/22 09:03 Pulse 119 H 07/10/22 09:03 Respiratory Rate 17 07/10/22 09:03 Respiratory Effort Non-Labored 07/10/22 09:08 Blood Pressure 143/83 H 07/10/22 09:03 Blood Pressure Position Sitting 07/10/22 09:03 Pulse Oximetry 98 07/10/22 09:03 Oxygen Delivery Method Room Air 07/10/22 09:03 Oxygen Flow Rate 0 07/10/22 09:03 Pain Level 4 07/10/22 09:08
[2022-07-10] MEDS: Lactated Ringers 1,000 ML 1000 ML IV (10:34)
[2022-07-10 10:42] LABS: Abs Immature Grans 0.03 10^3/uL (0.0-0.06); Absolute Basophil Count 0.03 10^3/uL (0.0-0.2); Absolute Eosinophil Count 0.16 10^3/uL (0.0-0.7); Absolute Lymphocyte Count 2.07 10^3/uL (1.2-3.4); Absolute Monocyte Count 0.58 10^3/uL (0.1-0.8); Absolute Neutrophil Count 2.52 10^3/uL (1.2-6.7); Basophils % 0.6; HCT 43.4 % (36.0-46.0); HGB 14.9 g/dL (11.2-15.7); Immature Grans % 0.6; Lymphocytes % 38.4; MCHC 34.3 % (32.0-36.0); MCV 88 fL (80-95); MPV 9.4 fL (8.0-11.0); Monocytes % 10.8; Neutrophils % 46.6; Platelet Count 230 10^3/uL (130-400); RBC 4.96 10^6/uL (3.93-5.22); RDW 12.1 % (11.7-14.6); WBC 5.39 10^3/uL (4.4-10.8)
[2022-07-10 10:42] LABS: Bilirubin Negative (Negative); Blood Trace-intact (Negative); Clarity Clear (Clear); Glucose Negative (Negative); Ketones Negative (Negative); Leukocyte Esterase Negative (Negative); Nitrite Negative (Negative); Urobilinogen 0.2 EU/dL (Up TO 0.2)
[2022-07-10 10:58] LABS: Bacteria Few HPF (Negative); C & S Indicated? No; Casts Negative LPF (Negative); Crystals Negative HPF (Negative); Epithelial Cells Moderate HPF (Negative); Mucus Negative (Negative); Other Cells Few Transitional (Negative); RBC 0-2 HPF (0-2); WBC 0-2 HPF (0-5)
[2022-07-10 11:10] LABS: ALT 18 U/L (14-59); AST 17 U/L (15-37); Albumin 4.1 g/dL (3.4-5.0); Alkaline Phosphatase 64 U/L (46-116); Anion Gap 7.6 mmol/L (3-11); BUN 12 mg/dL (7-18); Bilirubin, Total 0.4 mg/dL (0.2-1.0); CO2 27.4 mmol/L (21.0-32.0); CREATININE 0.9 mg/dL (0.55-1.02); Calcium 9.2 mg/dL (8.5-10.1); Chloride 106 mmol/L (98-107); Estimated GFR 75.03 (mL/min/1.73m2); Glucose 103 mg/dL (74-106); Lipase 95 U/L (73-393); Potassium 4.3 mmol/L (3.5-5.1); Sodium 141 mmol/L (136-145); Total Protein 7.6 g/dL (6.4-8.2); Troponin I < 50 ng/L (<or=60)
[2022-07-10] MEDS: Omnipaque 350 MG/ML 100 ML BTL IJ (12:15)
[2022-07-10 13:08] VITALS: BP 121/78; PULSE 69; RESP 19; TEMP 36.7; O2SAT 97
== END 2022-07-10 13:16 | disposition home or self-care (01) ==
PROVIDERS: Emergency Provider Physician Assistant; PCP Nurse Practitioner Family
DX: R10.13 Epigastric pain (principal); R10.10 Upper abdominal pain, unspecified; R31.9 Hematuria, unspecified; Z87.19 Personal history of other diseases of the digestive system; Z90.710 Acquired absence of both cervix and uterus; Z86.16 Personal history of COVID-19
CPT/HCPCS: 36415; 80053; 83690; 93005; 96361; 96374; 99285; 74177; 81003; 81015; 83735; 84484; 85025; 93010; 99284; J3490

== ENCOUNTER 2022-10-26 18:11 | Emergency (ER) | payer OTHER, SELFPAY ==
--- NOTE | 2022-10-26 18:15 | RT.EKG_ITS ---
APPROVED REPORT Exam: Resting ECG Reason for Exam: sob Patient Location: E HR:98 bpm ECG Measurements Heart Rate 98 AXIS MS 159 P 73 QRSd 75 QRS 67 QT 332 T 4 QTc 424 Conclusion Sinus rhythm...normal P axis, V-rate 60- 99
[2022-10-26 18:18] VITALS: BP 132/78; PULSE 74; RESP 18; TEMP 36.7; O2SAT 95
[2022-10-26 20:00] VITALS: BP 129/82; PULSE 81; RESP 16; O2SAT 93
[2022-10-26] MEDS: Dexamethasone 10 MG/ML VIAL PO (20:43)
--- NOTE | 2022-10-26 20:56 | DI.RAD_ITS ---
Exam(s) XR CHEST 2V PA LATERAL EXAM: XR CHEST 2V PA LATERAL CLINICAL HISTORY: Inhalation TECHNIQUE: 2D digital imaging was performed of the chest. Two images were obtained. PA and lateral views were obtained. COMPARISON: No exams were available for comparison FINDINGS: MEDIASTINUM: Normal. HEART: Normal. PULMONARY VASCULATURE: Normal. LUNGS: Clear. PLEURAL SPACE: No pleural effusion or pneumothorax. BONE:Within normal limits for the patient's age. OTHER FINDINGS:Normal. IMPRESSION: No acute pulmonary findings. DATA REPOSITORY: RADIATION DOSE DELIVERED:
--- NOTE | 2022-10-26 21:22 | W.ED.GENAD ---
Discharge Plan Disposition Patient Disposition: Home Discharge Details Clinical Impression: Acute pneumonitis due to chemical fumes Primary Care Provider: Patricio Winston ED Provider: Mary Kay Parks Home Meds and New Rx's Prescriptions: New prednisone 20 mg tablet 60 mg PO DAILY 5 Days Qty: 15 0RF prednisone 20 mg tablet 60 mg PO DAILY 5 Days Qty: 15 0RF No Action omeprazole 20 mg capsule,delayed release(DR/EC) 20 mg PO DAILY Qty: 90 4RF Discharge Instructions Instructions: Pneumonitis (ED) Additional Instructions: Use the albuterol inhaler 1 or 2 puffs every 4-6 hours. Take the prednisone 3 tablets daily for the next 5 days. Please return here to the ER or urgent care for recheck in 2 to 3 days. Return to the ER for any worsening shortness of breath or any concerns. You may wash your eyes with saline. Stand Alone Forms: Work Release Referrals: Patricio Winston, SR. DIRECTOR PRODUCT MANAGEMENT [Primary Care Provider] - 3 days Discharge Data Discharge Date/Time-TO BE ENTERED AT DEPARTURE: 10/26/22 22:39 Medical Decision Making 57-year-old female presents to the ER with a chief complaint of granulation injury which occurred at 1 PM this afternoon. Patient reports that she reports some chlorine into a tab and inhaled that she is complaining of chest pain, wheezing and shortness of breath. She denies any eye burning or skin irritation. She does have inspiratory and expiratory wheezes bilaterally on auscultation, she did receive dexamethasone p.o. in the waiting room, chest x-ray was ordered. Chest x-ray ordered, dexamethasone 10 mg p.o., DuoNeb, Solu-Medrol 125 CBC and CMP. Will contact poison control. 2124: Spoke with Poison Control, patient reports that she is in remarkably of the hospital and was cleaning a tub on the floor with something called a bio tab tablet we will contact the floor to find [facility] UDS. 2200: Spoke with poison control they were able to find the MSDS on the bio tab 7 tablets extra is developing into chlorine dioxide gas which is a concern for chemical pneumonitis they do recommend follow-up in 1 to 2 days for rule out pneumonia and supportive care with bronchodilators. 2218: Patient reevaluation, patient is still having some wheezing but it has improved she reports feeling better. I did discuss poison control recommendations for her to return for recheck to rule out pneumonia or to to return if she is feeling any worse she verbalizes understanding. We will give her an albuterol inhaler to go home with and prednisone stent for approximately 5 days. Discussed strict return instructions with her she verbalized understanding. 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 This text was generated using [employer] system, please disregard any oddities of phrase or misspellings. Lab Data Lab results reviewed: Yes I reviewed the patient's lab results. Labs: Laboratory Tests Range/Units 10/26/22 10/26/22 21:30 21:30 WBC (4.4-10.8) 10^3/uL 6.66 RBC (3.93-5.22) 10^6/uL 5.14 Hgb (11.2-15.7) g/dL 15.7 Hct (36.0-46.0) % 44.2 MCV (80-95) fL 86 MCH (27.0-33.0) pg 30.5 MCHC (32.0-36.0) % 35.5 RDW (11.7-14.6) % 12.0 Plt Count (130-400) 10^3/uL 273 MPV (8.0-11.0) fL 9.2 Immature Gran % 0.2 Neutrophils % 38.5 Lymphocytes % 47.7 Monocytes % 9.6 Eosinophils % 2.9 Basophils % 1.1 Nucleated RBC % (0.0-0.3) % 0.0 Absolute Neutrophils (1.2-6.7) 10^3/uL 2.57 Absolute Lymphocytes (1.2-3.4) 10^3/uL 3.18 Absolute Monocytes (0.1-0.8) 10^3/uL 0.64 Absolute Eosinophils (0.0-0.7) 10^3/uL 0.19 Absolute Basophils (0.0-0.2) 10^3/uL 0.07 Sodium (136-145) mmol/L 140 Potassium (3.5-5.1) mmol/L 3.9 Chloride (98-107) mmol/L 105 Carbon Dioxide (21.0-32.0) mmol/L 29.1 Anion Gap (3-11) mmol/L 5.9 BUN (7-18) mg/dL 14 Creatinine (0.55-1.02) mg/dL 0.9 Est GFR (CKD-EPI 2020) (mL/min/1.73m2) 75.03 Glucose (74-106) mg/dL 107 H Calcium (8.5-10.1) mg/dL 9.3 Total Bilirubin (0.2-1.0) mg/dL 0.6 AST (15-37) U/L 14 L ALT (14-59) U/L 21 Alkaline Phosphatase (46-116) U/L 60 Total Protein (6.4-8.2) g/dL 8.1 Albumin (3.4-5.0) g/dL 4.4 HPI General Mode of arrival: ambulatory. Date/Time Provider Initiated Documentation: 10/26/22 20:19. Limitations to Documentation: no limitations. Information obtained by: patient, RN notes reviewed and old records reviewed. HPI Narrative: 57-year-old female presents to the ER with a chief complaint of granulation injury which occurred at 1 PM this afternoon. Patient reports that she reports some chlorine into a tab and inhaled that she is complaining of chest pain, wheezing and shortness of breath. She denies any eye burning or skin irritation. She does have inspiratory and expiratory wheezes bilaterally on auscultation, she did receive dexamethasone p.o. in the waiting room, chest x-ray was ordered. She does not have any history of asthma or COPD that is reported. Past medical history includes COVID-19 , GERD. Related Data Home Medications Medication Instructions Recorded Confirmed omeprazole 20 mg capsule,delayed 20 mg PO DAILY #90 caps 08/30/22 10/26/22 release prednisone 20 mg tablet 60 mg PO DAILY 5 days #15 tabs 10/26/22 prednisone 20 mg tablet 60 mg PO DAILY 5 days #15 tabs 10/26/22 Previous Rx's Medication Instructions Recorded omeprazole 20 mg capsule,delayed 20 mg PO DAILY #90 caps 08/30/22 release prednisone 20 mg tablet 60 mg PO DAILY 5 days #15 tabs 10/26/22 prednisone 20 mg tablet 60 mg PO DAILY 5 days #15 tabs 10/26/22 Allergies Allergy/AdvReac Type Severity Reaction Status Date / Time tramadol Allergy Intermediate Hives Verified 10/26/22 18:21 oxycodone AdvReac Intermediate Verified 03/23/23 18:21 General Stated Complaint: RespSymp AFSANEH: 3 Review of Systems All systems reviewed & are unremarkable except as noted in HPI and below Cardiovascular Cardiovascular: Reports dyspnea Respiratory Respiratory: Reports as per HPI, Reports dyspnea and Reports wheezing Allergic/Immunologic Allergic/Immunologic: Reports wheezing [facility] All Active Problems (Updated 10/26/22 @ 22:23 by Mary Kay Parks NP) Acute pneumonitis due to chemical fumes (Acute) Abnormal mammogram of both breasts (Acute) Bilateral US recommended in 04/2022 for f/u per radiologogist Helicobacter pylori gastritis (Acute) 11/2021-EGD and biopsy, per general surgery at [facility], treated with triple therapy Sessile colonic polyp (Acute) 11/2021-due in 2026 Tubular adenoma of colon (Acute) Personal history of nicotine dependence (Acute) [id number]-ybji-year history Medical History COVID-19 09/05/21 GERD (gastroesophageal reflux disease) History of deviated nasal septum s/p sx Surgical History History of X 2 History of colonoscopy (~11/2021) Hx of nasal septoplasty S/P NELLY-BSO in [place]- benign etiology Family History Mother Colon cancer Heart disease Hypertension Stroke Father , 83 Cancer Heart disease Stroke Sister No problems noted. Son No problems noted. Daughter No problems noted. Social History Smoking/Tobacco Use Status: Current every day Tobacco Type: e-cigarettes Quit status: considering quitting Second Hand Exposure: Yes Smoking risk assessment performed?: Yes Alcohol Intake: never Drug use: Never Substance use type: does not use Caregiver/Support person: No Household members: significant other Housing: house Communication Needs: None Do you need help understanding health information?: Never Pets and animals: Yes Pets and animals: cat(s) Sexually active: Yes Do you think of yourself as: straight/heterosexual Current gender identity: female What is your relationship status?: living with partner How often do you talk on the phone with friends or family?: three or more times per week How often do you get together with friends or relatives?: three or more times per week How often do you attend religious or pentecostalism services?: decline to answer Do you belong to any clubs or organized social groups?: no Panel score (0-1 are the most socially isolated patients): 2 What type of physical activity do you participate in: walking Duration: 60-90 minutes/day Frequency: 5-6 times per week Cait/Mosque: No preference Special cait needs: No Seatbelt use: always Helmet use: Yes Helmet use: sometimes Drive intox or ride w/intox bus van driver: No Do you feel safe at home: Yes Do you feel safe in your relationship?: Yes Exam Narrative Exam Narrative: Constitutional: Alert and oriented x3. Appears stated age. Normal body habitus. Head: Normocephalic, no trauma. Eyes: Pupils PERRL, Red reflex noted, EOM's intact. Eyelids symmetrical without lesions, discharge, or swelling. ENT: Bilateral TM's WNL, External ear normal to inspection, no mastoid TTP, swelling, or erythema, Nasal turbinates WNL, no nasal discharge. Normal dentition, Posterior pharynx WNL, no exudate. Chest: RRR, Normal S1, S2, distal pulses intact. Resp: Wheezes to auscultation bilaterally inspiratory and expiratory. Abdomen: Soft, non-distended, Normoactive bowel sounds all 4 quads. Musculoskeletal: Normal gait, 5/5 strength to all four extremities. Skin: No suspicious rashes or lesions. Capillary refill less than 2 sec. Neurologic: Cranial nerves II-XII intact. Alert and oriented x 3. Motor: No deficits noted. Sensory: Intact bilaterally all 4 extremities. Reflexes: DTR's intact bilaterally.. Hematologic/Lymphatic: No ecchymosis, no lymphadenopathy. Course Vital Signs Vital signs: Vital Signs Temperature 36.7 C 10/26/22 18:18 Pulse 74 10/26/22 18:18 Respiratory Rate 18 10/26/22 18:18 Blood Pressure 132/78 10/26/22 18:18 Pulse Oximetry 95 10/26/22 18:18 Temperature 36.7 C 10/26/22 18:18 Temperature Source Oral 10/26/22 18:18 Pulse 81 10/26/22 20:00 Respiratory Rate 16 10/26/22 20:00 Respiratory Effort Normal, Non-Labored 10/26/22 18:21 Blood Pressure 129/82 10/26/22 20:00 Pulse Oximetry 93 10/26/22 20:00 Oxygen Delivery Method Room Air 10/26/22 20:00 Oxygen Flow Rate 0 10/26/22 20:00
[2022-10-26] MEDS: methylPREDNISolone SUCC 125 MG VIAL IVP (21:30)
[2022-10-26] MEDS: Albuterol/Ipratropium 3 ML UPD VIAL UPD (21:30)
--- NOTE | 2022-10-26 21:33 | DI.VRAD_ITS ---
PROCEDURE INFORMATION: Exam: XR Chest Exam date and time: 10/26/2022 8:55 PM Age: 57 years old Clinical indication: Other: Inhalation TECHNIQUE: Imaging protocol: Radiologic exam of the chest. Views: 2 views. COMPARISON: CT ABDOMEN PELVIS W 07/10/2022 12:22 PM FINDINGS: Lungs: No pulmonary consolidation is seen. Pleural spaces: No pleural effusion or pneumothorax is demonstrated. Heart/Mediastinum: Heart size is normal. Bones/joints: The visualized bony structures appear grossly intact. IMPRESSION: No active disease is seen in the chest. Dictated and Authenticated by: Travis Guan MD. Ordering:ADILENE Muñiz MD
[2022-10-26 21:40] LABS: Abs Immature Grans 0.01 10^3/uL (0.0-0.06); Absolute Basophil Count 0.07 10^3/uL (0.0-0.2); Absolute Eosinophil Count 0.19 10^3/uL (0.0-0.7); Absolute Lymphocyte Count 3.18 10^3/uL (1.2-3.4); Absolute Monocyte Count 0.64 10^3/uL (0.1-0.8); Absolute Neutrophil Count 2.57 10^3/uL (1.2-6.7); Basophils % 1.1; Eosinophils % 2.9; HCT 44.2 % (36.0-46.0); HGB 15.7 g/dL (11.2-15.7); Immature Grans % 0.2; Lymphocytes % 47.7; MCH 30.5 pg (27.0-33.0); MCHC 35.5 % (32.0-36.0); MCV 86 fL (80-95); MPV 9.2 fL (8.0-11.0); Monocytes % 9.6; Neutrophils % 38.5; Platelet Count 273 10^3/uL (130-400); RBC 5.14 10^6/uL (3.93-5.22); RDW-SD 37.8 fL; WBC 6.66 10^3/uL (4.4-10.8)
[2022-10-26 21:57] LABS: ALT 21 U/L (14-59); AST 14 U/L (15-37); Albumin 4.4 g/dL (3.4-5.0); Alkaline Phosphatase 60 U/L (46-116); Anion Gap 5.9 mmol/L (3-11); BUN 14 mg/dL (7-18); Bilirubin, Total 0.6 mg/dL (0.2-1.0); CO2 29.1 mmol/L (21.0-32.0); CREATININE 0.9 mg/dL (0.55-1.02); Calcium 9.3 mg/dL (8.5-10.1); Chloride 105 mmol/L (98-107); Estimated GFR 75.03 (mL/min/1.73m2); Glucose 107 mg/dL (74-106); Potassium 3.9 mmol/L (3.5-5.1); Sodium 140 mmol/L (136-145); Total Protein 8.1 g/dL (6.4-8.2)
[2022-10-26 22:30] VITALS: BP 142/60; PULSE 97; RESP 16; TEMP 36.7; O2SAT 95
[2022-10-26] MEDS: Inhaler, Assist Device 1 EACH MC (22:30)
[2022-10-26] MEDS: Albuterol HFA 8 GM 60 PUFF INH IH (22:30)
== END 2022-10-26 22:39 | disposition home or self-care (01) ==
PROVIDERS: Emergency Provider Registered Nurse Emergency; PCP Nurse Practitioner Family
DX: T54.91XA Toxic effect of unspecified corrosive substance, accidental (unintentional), initial encounter (principal); J68.0 Bronchitis and pneumonitis due to chemicals, gases, fumes and vapors
CPT/HCPCS: 36415; 80053; 93005; 94640; 96374; 99284; 71046; 85025; 93010; J1100; J2930; J7620

== ENCOUNTER → 2023-03-27 02:33 | Outpatient (CLI) | payer OTHER, SELFPAY ==
--- NOTE | 2023-03-27 08:00 | DI.US_ITS ---
Exam(s) US BREAST LT COMPLETE US BREAST RT COMPLETE EXAM: US BREAST BILATERAL COMPLETE CLINICAL HISTORY: 6 mo f/u, r92.8. TECHNIQUE: Complete ultrasound of the BOTH BREASTS was performed including all 4 quadrants, the retr oareolar regions, and the bilateral axillary regions.. COMPARISON: This ultrasound was performed following today's screening mammogram. Prior mammogram and ultrasound examinations were reviewed. FINDINGS: LEFT BREAST ULTRASOUND: At the 5 o'clock position there is a 5 by 3 millimeter benign microcyst which corresponds to the new nodule on mammogram. At 7 o'clock position there is a 4 x 3 mm microcyst. At the 11 o'clock position there is a 6 x 3 mm benign microcyst. New solid lesions in the left breast. Left axilla is negative for significant adenopathy. RIGHT BREAST ULTRASOUND: At the 7 o'clock position there is a 6 by 3 millimeter finding which has appearance of a septated alphonso rocyst and most probably corresponds to the finding on the mammogram. At the 10 o'clock position there is a 4 x 4 mm microcyst Another small microcysts is noted in the retroareolar region at 9 o'clock position. No new solid lesions in the right breast. Scanning of the right axilla is negative for significant adenopathy. IMPRESSION: Bilateral microcysts as described above. No solid lesions in either breast. No axillary adenopathy Appropriate follow-up is repeat mammogram in 6 months. BI-RADS Category 3 - 6 month - Probably Benign Finding: Recommend follow-up mammography in 6 months Breast Density - Category B - Scattered areas of fibroglandular density Breast density Category C or D implies that the patient has dense breast tissue. Dense breast tissue can make it harder to find cancer on a mammogram. Dense breast tissue is also associated with an incr eased risk of breast cancer. This information about the result of the mammogram report was provided to the patient to raise their awareness. Use this report when you speak with the patient about their risks for breast cancer, which includes their family history. At that time, you may recommend additional screening tests (Ultrasoun d or MRI) as these tests may add significant information. A negative radiographic report should not delay biopsy if a dominant or clinically suspicious mass is present. Up to ten percent of cancers are not identified on mammography. A negative report may reinforce clinical impression. Adenosis and dense breasts may obscure an underlying neoplasm. False positive reports average 6 to 10%. Patient will receive a letter notifying them of these results.
--- NOTE | 2023-03-27 08:00 | DI.MAMMO_ITS ---
Exam(s) MAMMO SCREENING EXAM: MAMMO SCREENING CLINICAL HISTORY: screening,z12.39. TECHNIQUE: Bilateral full field digital CC and MLO mammographic images were obtained with 3D tomosyn thesis and utilizing computer aided detection (CAD). COMPARISON: Prior mammograms were reviewed. Prior ultrasounds were reviewed FINDINGS: There is a new small nodular density seen laterally in the left breast. This is shown to be a microc yst on ultrasound today. There is an unchanged benign-appearing nodule towards the posterior aspect of the right breast noted unchanged from prior mammograms. There are no new spiculated masses nor malignant appearing microcalcification groups. There is no significant architectural distortion nor skin thickening-retraction. IMPRESSION: Benign-appearing mammographic findings. New nodule in the left breast appears to correspond to a alphonso rocyst on today's ultrasound. Please refer to that separate ultrasound report. Appropriate follow-up is repeat mammogram in 6 months BI-RADS Category 3 - 6 month - Probably Benign Finding: Recommend follow-up mammography in 6 months Breast Density - Category B - Scattered areas of fibroglandular density Breast density Category C or D implies that the patient has dense breast tissue. Dense breast tissue can make it harder to find cancer on a mammogram. Dense breast tissue is also associated with an incr eased risk of breast cancer. This information about the result of the mammogram report was provided to the patient to raise their awareness. Use this report when you speak with the patient about their risks for breast cancer, which includes their family history. At that time, you may recommend additional screening tests (Ultrasoun d or MRI) as these tests may add significant information. A negative radiographic report should not delay biopsy if a dominant or clinically suspicious mass is present. Up to ten percent of cancers are not identified on mammography. A negative report may reinforce clinical impression. Adenosis and dense breasts may obscure an underlying neoplasm. False positive reports average 6 to 10%. Patient will receive a letter notifying them of these results.
== END ==
PROVIDERS: PCP Nurse Practitioner Family; Visit Provider Nurse Practitioner Family
DX: R92.8 Other abnormal and inconclusive findings on diagnostic imaging of breast (principal); Z12.31 Encounter for screening mammogram for malignant neoplasm of breast
CPT/HCPCS: 76642; 77063; 77067

== ENCOUNTER 2023-09-10 10:22 | Outpatient (REF) | payer OTHER, SELFPAY ==
--- NOTE | 2023-09-10 10:30 | PAPFT_PTH ---
PATIENT: Ana Laura Coley LOC: [facility] U#:[id number] AGE/SX: 58/F ROOM: RE09/10/[address]: Patricio Frank DNP : 1965 BED: DIS: 09/10/2023 SPEC #: [id number] RECD: 09/10/23 12:53 STATUS: DWIGHT RELalita #: [id number] ADITI: 09/10/23 10:[address]: Patricio Winston DEPT: [facility] Cytology RECD BY: Marianna Spann Tissues: 1 - CX/ENDOCX FOR PAP SMEARS Procedures: PAP THIN PREP/[facility] Screening HPV DNA PROBE Comments: [id number]
== END 2023-09-10 10:23 | disposition home or self-care (01) ==
LOC: LBN 10:22
PROVIDERS: PCP Nurse Practitioner Family; Visit Provider Nurse Practitioner Family
DX: Z12.4 Encounter for screening for malignant neoplasm of cervix (principal); Z11.51 Encounter for screening for human papillomavirus (HPV)
CPT/HCPCS: 88142; 87624

== ENCOUNTER → 2023-09-13 01:08 | Outpatient (CLI) | payer OTHER, SELFPAY ==
[2023-09-13] MEDS: Barium Sulfate 2% W/V-Berry Smoothie 450 ML BTL PO ×2 (08:45→08:47)
[2023-09-13 09:06] LABS: HCT 43.1 % (36.0-46.0); HGB 14.6 g/dL (11.2-15.7); MCH 29.3 pg (27.0-33.0); MCHC 33.9 % (32.0-36.0); MCV 86 fL (80-95); MPV 9.2 fL (8.0-11.0); Platelet Count 245 10^3/uL (130-400); RBC 4.99 10^6/uL (3.93-5.22); RDW 12.2 % (11.7-14.6); RDW-SD 38.6 fL; WBC 4.44 10^3/uL (4.4-10.8)
[2023-09-13 09:28] LABS: ALT 18 U/L (14-59); AST 12 U/L (15-37); Albumin 3.9 g/dL (3.4-5.0); Alkaline Phosphatase 51 U/L (46-116); Amylase 40 U/L (25-115); Anion Gap 9.5 mmol/L (3-11); BUN 13 mg/dL (7-18); Bilirubin, Total 0.5 mg/dL (0.2-1.0); CO2 26.5 mmol/L (21.0-32.0); CREATININE 0.9 mg/dL (0.55-1.02); Chloride 106 mmol/L (98-107); Estimated GFR 74.57 (mL/min/1.73m2); Glucose 101 mg/dL (74-106); Lipase 15 U/L (16-77); Potassium 4.2 mmol/L (3.5-5.1); Sodium 142 mmol/L (136-145); TSH (W/Ref FT4) 2.49 uIU/mL (0.36-3.74); Total Protein 7.6 g/dL (6.4-8.2)
[2023-09-13 09:40] LABS: Calculated LDL 186 mg/dL (<100); Cholesterol 265 mg/dL (<200); HDL Cholesterol 55 mg/dL (40-60); Triglyceride 121 mg/dL (<150)
[2023-09-13] MEDS: Normal Saline - Diluent 50 ML VIAL IJ (11:13)
[2023-09-13] MEDS: Omnipaque 350 MG/ML 500 ML BTL-Imaging package 100 ML IJ (11:14)
--- NOTE | 2023-09-13 11:30 | DI.CT_ITS ---
Exam(s) CT ABDOMEN PELVIS W EXAM: CT ABDOMEN PELVIS W CLINICAL HISTORY: chronic umbilical pain,wakes her up at night,r10.33. TECHNIQUE: Imaging Protocol: Axial computed tomography images with coronal and sagittal reformatted images were created and reviewed CONTRAST MATERIAL: Intravenous: Omnipaque 350 Contrast volume:100 ml Oral: yes / no COMPARISON: CT CT ABDOMEN PELVIS W from 07/10/2022 FINDINGS: ABDOMEN and PELVIS: Lung Bases: No acute findings. Liver: Normal density. No measurable mass. Gallbladder and biliary tract: No radiodense calculus or dilation. Pancreas: Normal density. No abnormal calcifications or inflammatory process. No evidence of mass. Spleen: Normal. Kidneys: Normal size, contour and axis. No radiodense stones. No obstructive uropathy. No suspicious masses seen. Adrenal glands: No masses seen. Vasculature: Abdominal aorta non-dilated. Soft tissues: Unremarkable. Bladder: No gross wall thickening. No calculi.No focal mass. Bowel: No obstruction. Sigmoid diverticulosis. No evidence of diverticulitis. Appendix normal. N ormal quantity of stool. Peritoneal cavity: No ascites. No focal collection or mesenteric inflammatory response. Bones: Unremarkable for age. Reproductive organs: Status post hysterectomy. Lymph nodes: Unremarkable. IMPRESSION:: Diverticulosis. No evidence of diverticulitis. No acute abnormality in the abdomen or pelvis. RADIATION DOSE DELIVERED: 1,146.27mGy.cm Total DLP DATA REPOSITORY: All CT scans at this facility are submitted to the National Radiology Data Registry (NRDR) Dose Index Registry (DIR) with the [employer] (ACR). RADIATION OPTIMIZATION: All CT scans at this facility use at least one of these dose optimization te chniques: automated exposure control; mA and/or kV adjustment per patient size (includes targeted exa ms where dose is matched to clinical indication); or iterative reconstruction.
[2023-09-13 18:53] LABS: Hepatitis C Ab w Rflx HCV PCR Negative (Negative)
[2023-09-13 18:58] LABS: HIV-1/2 Ag & Ab Screen Negative (Negative)
== END ==
PROVIDERS: PCP Nurse Practitioner Family; Visit Provider Nurse Practitioner Family
DX: Z13.220 Encounter for screening for lipoid disorders (principal); Z11.4 Encounter for screening for human immunodeficiency virus [HIV]; R10.33 Periumbilical pain; Z86.39 Personal history of other endocrine, nutritional and metabolic disease; Z11.59 Encounter for screening for other viral diseases
CPT/HCPCS: 80053; 80061; 83690; 85027; 86803; 87389; 74177; 82150; 84443

== ENCOUNTER 2023-10-08 09:09 | Day surgery (SDC) | payer OTHER, SELFPAY ==
--- NOTE | 2023-10-07 07:16 | W.PM.DSUDISC ---
Date of service: 10/08/23 Time of Service: 10:39 Discharge Plan Disposition Patient Disposition: Home Condition: Good Discharge Details Reason For Visit: EGD and Colonoscopy Attending Provider: Ba Castillo Primary Care Provider: Patricio Winston Home Meds and New Rx's Prescriptions: Continued omeprazole 20 mg capsule,delayed release(DR/EC) 20 mg PO DAILY Qty: 90 4RF Discharge Instructions Additional Instructions: Ana Laura, the EGD went very smoothly today, and I hope you feel pretty comfortable. Generally, everything appears pretty normal. There was certainly nothing worrisome to the naked eye. I did perform some biopsies like we talked about to rule out things like celiac disease or Helicobacter pylori. You do have some mild changes around the GE junction that are consistent with chronic gastroesophageal reflux disease. Similar to your endoscopy in the past, I did some biopsies here to make sure there are no worrisome changes. All of the biopsy results should take about a week or 2 to get back. If we confirm a diagnosis at that point, I will certainly talk to about treatment options moving forward. If these are negative, then I really think that the most likely diagnosis is discomfort associated with diverticulosis. If you have any questions in the meantime, please do not be afraid to grab me. 1. If tolerated, consume a soft, low fiber diet for 1-2 days. 2[address] Do not drive, drink alcohol, operate machinery, make critical decisions, or do activities that require coordination or balance for 24 hours. 3. You may experience a sore throat for 24 to 48 hours. You may use throat lozenges or gargle with warm salt water to relieve the discomfort. 4. Because air was put into your stomach during the procedure, you may experience some belching. 5. Go directly to the emergency room if you notice any of the following: Develop chills (warm to touch), or if you have a thermometer and your temperature is above 101 Difficulty breathing or difficultly swallowing Persistent vomiting Severe abdominal pain, other than gas cramps Severe chest pain Black, tarry stools Any bleeding ? exceeding one tablespoon 6. Call your physician if the site where your intravenous was started becomes red, swollen, painful, and warm to touch. 7. Your physician has reviewed your pre-procedure medications. Please continue to take those medications as previously ordered. You will be given specific information/education regarding any changes to your medications before leaving. Activity:: Activity as Tolerated Diet:: As Tolerated Discharge Orders Discharge Orders: Discharge Order (Routine); Ordered 10/07/23 Ordered By: Ba Castillo DS: Diagnosis Discharge Diagnosis (1) Abdominal pain: Status: Inactive Asessment and Plan: Normal-appearing EGD. Follow-up on biopsy results
--- NOTE | 2023-10-07 07:17 | W.PM.ENDDOP ---
Date of service: 10/08/23 Time of Service: 10:41 Endoscopy Report DATE OF PROCEDURE: 10/08/23 PRE-OP DIAGNOSIS: Abdominal pain POST-OP DIAGNOSIS: same PROCEDURE: EGD with biopsies SURGEON: Ba Castillo ANESTHESIA TYPE: General:No Airway ESTIMATED BLOOD LOSS: 10 PATHOLOGY: other (Random biopsies of duodenum, gastric antrum and body, GE junction) COMPLICATIONS: None DISPOSITION: same day INDICATIONS: Ana Laura is a 58 year old woman with 2 previous episodes of h pylori infection and nonspecific abdominal pain PREP: Miralax/Dulcolax PROCEDURE START TIME: :20 PROCEDURE END TIME: : FINDINGS: Normal-appearing EGD PROCEDURE DESCRIPTION: After the initiation of anesthesia, and with the assistance of a bite block, I advanced a standard gastroscope through the mouth past the hypopharynx and into the esophagus.? Under the direct vision of the scope, I advanced down the esophagus towards the stomach.? The upper, mid, and lower esophagus all appeared normal. The GE junction measured around 35 cm from the incisors. There was very mild irregularity of the Z-line. Narrowband imaging was used to assist with analysis. I did not see gross evidence of Mckenna's esophagus. I advanced down into the stomach, and insufflated until the rugae were obliterated. I performed retroflexion. This is normal, without any evidence of hiatal hernia. I turned the camera back antegrade, and navigated down around the incisura angularis towards the pylorus. I did not see any signs of active gastritis. I was able to traverse the pylorus without any difficulty. I advanced the scope down to the third portion of the duodenum. Bile was seen entering through the ampulla Vater. I did not see any signs of active duodenitis or peptic ulcer disease within the duodenum. Given the uncertainty of the diagnosis, I did perform cold forceps biopsies of the duodenum to rule out celiac disease. I backed the camera back up into the stomach, and perform random biopsies of the gastric antrum and body given the patient's history of multiple H. pylori infections. Biopsies were all done with cold forceps with minimal bleeding. I then emptied the stomach completely, and brought the camera out along the length of the esophagus examining at 1 last time. Again, I saw no other abnormalities.
[2023-10-08 09:12] VITALS: BP 143/73; PULSE 97; RESP 16; TEMP 36.3; O2SAT 97
[2023-10-08] MEDS: Lactated Ringers 1,000 ML 80 ML IV (09:33)
--- NOTE | 2023-10-08 09:57 | W.ANESPRE ---
General Info Date of Service Date Performed: 10/08/23 Height: 5 ft 3 in Weight: 85.5 kg Body Mass Index (BMI): 33.3 Surgical Procedure: Operation Date: 10/08/23 10:35 Proposed Procedure Side Surgeon p Gastroscopy Ba Castillo MD Meds Allergies and Home Medications Allergies Allergy/AdvReac Type Severity Reaction Status Date / Time tramadol Allergy Intermediate Hives Verified 10/08/23 09:17 oxycodone AdvReac Intermediate . Verified 10/08/23 09:17 Home Medication Medication Instructions Recorded omeprazole 20 mg capsule,delayed 20 mg PO DAILY #90 caps 08/30/22 release Current Visit Medications: Current Medications Generic Name Dose Route Start Last Admin Trade Name Freq PRN Reason Stop Dose Admin Ringer's Solution 1,000 mls @ 80 mls/hr 10/08/23 06:00 IV 11/04/23 23:59 INFUSION MICHAEL IV Miscellaneous Supplies 1 each 10/08/23 06:00 Iv Access IV 11/04/23 23:59 DIRECTED MICHAEL Ondansetron HCl 4 mg 10/08/23 07:18 Ondansetron 4 Mg/2 Ml Vial IVP 11/07/23 07:17 Q4H PRN PRN Nausea / Vomiting Sodium Chloride 0 ml 10/08/23 06:00 Normal Saline Flush 10 Ml Syr IV 11/04/23 23:59 PRN PRN Sodium Chloride 0 ml 10/08/23 06:00 Normal Saline 10 Ml Vial IJ 11/04/23 23:59 DIRECTED PRN Sterile Water 0 ml 10/08/23 06:00 Water,Injection,Sterile 10 Ml Vial IJ 11/04/23 23:59 DIRECTED PRN PFSH Active Problems Active Problems: Problem Status Onset Code History of hyperthyroidism Z86.39 Umbilical pain R10.33 Personal history of nicotine dependence Z87.891 Tubular adenoma of colon D12.6 Sessile colonic polyp K63.5 Helicobacter pylori gastritis K29.70, B96.81 Abnormal mammogram of both breasts R92.8 Medical History Medical History Cellulitis COVID-19 09/05/21 History of deviated nasal septum s/p sx GERD (gastroesophageal reflux disease) Surgical History Surgical History History of colonoscopy (~11/2021) Hx of nasal septoplasty History of X 2 S/P NELLY-BSO in [place]- benign etiology Tobacco Smoking/Tobacco Use Status: Former Tobacco Use Passive smoking exposure: Yes Second hand exposure: Yes Alcohol Alcohol Intake: never Substance Use Substance use: Never Substance use type: does not use Vital Signs and Lab Results Vital Signs Most Recent Vital Signs in EMR: Most Recent Vital Signs Temp Pulse Resp BP Pulse Ox 36.3 C L 97 H 16 143/73 H 97 10/08/23 09:12 10/08/23 09:12 10/08/23 09:12 10/08/23 09:12 10/08/23 09:12 Lab Results Blood Type / Crossmatch: No Data to Display Complete Blood Count: White Blood Count 4.44 10^3/uL (4.4-10.8) 09/13/23 08:50 Red Blood Count 4.99 10^6/uL (3.93-5.22) 09/13/23 08:50 Hemoglobin 14.6 g/dL (11.2-15.7) 09/13/23 08:50 Hematocrit 43.1 % (36.0-46.0) 09/13/23 08:50 Platelet Count 245 10^3/uL (130-400) 09/13/23 08:50 Complete Metabolic Panel: Sodium 142 mmol/L (136-145) 09/13/23 08:50 Potassium 4.2 mmol/L (3.5-5.1) 09/13/23 08:50 Chloride 106 mmol/L (98-107) 09/13/23 08:50 Carbon Dioxide 26.5 mmol/L (21.0-32.0) 09/13/23 08:50 BUN 13 mg/dL (7-18) 09/13/23 08:50 Creatinine 0.9 mg/dL (0.55-1.02) 09/13/23 08:50 Est GFR (CKD-EPI 2020) 74.57 (mL/min/1.73m2) 09/13/23 08:50 Calcium 9.0 mg/dL (8.5-10.1) 09/13/23 08:50 Albumin 3.9 g/dL (3.4-5.0) 09/13/23 08:50 Glucose 101 mg/dL (74-106) 09/13/23 08:50 Liver Function Panel: Alanine Aminotransferase (ALT/SGPT) 18 U/L (14-59) 09/13/23 08:50 Aspartate Amino Transf (AST/SGOT) 12 U/L (15-37) L 09/13/23 08:50 Coagulation Panel: No Data to Display Cardiac Panel: No Data to Display Arterial Blood Gas: No Data to Display Venous Blood Gas: No Data to Display Pancreas Panel: Amylase Level 40 U/L (25-115) 09/13/23 08:50 Lipase 15 U/L (16-77) L 09/13/23 08:50 Thyroid Panel: Thyroid Stimulating Hormone (TSH) 2.49 uIU/mL (0.36-3.74) 09/13/23 08:50 Infectious Disease: HIV (1&2) Ag and Ab, 4th Generation Negative (Negative) 09/13/23 08:50 Hepatitis C Antibody Negative (Negative) 09/13/23 08:50 Blood Cultures: No Data to Display Toxicology Panel: No Data to Display Anesthesia Assessment and Plan Anesthesia History Personal History: No History of Anesthesia Complications Family History: No Family History of Anesthesia Complications Exercise Tolerance Exercise Tolerance: Metabolic Equivalents>4 Pertinent Negatives Pertinent Negatives: No Major Cardiovascular Symptoms or Complaints, No Major Pulmonary Symptoms or Complaints and No History of CVA/TIA Cardiac & Pulmonary Exam Cardiac Exam: Normal S1/S2 Heart Sounds Pulmonary Exam: Clear Bilateral Breath Sounds Implantable Cardiac Device Does patient have a Pacemaker or an ICD?: No Airway Exam Known Difficult Airway: No Mallampati Class: 2 Mouth Opening: Normal (> 3cm) Thyromental Distance: Greater than 3 cm Neck Range of Motion: Full ROM Neck Circumference: Thick Teeth Condition: Normal Dentition ASA Classification ASA Score: ASA 2 Emergency Case?: No NPO Status NPO Status: NPO Clears >2 hours, Solids >8 hours Anesthesia Plan Resuscitation Status: Full Code Anesthesia Technique: General Anesthesia Airway Planned: Natural Airway Monitors Used: Standard Monitors Preoperative Comments:: GERD, abdominal discomfort, hx of H.Pylori
[2023-10-08 10:10] VITALS: BMI 33.3
--- NOTE | 2023-10-08 10:23 | STOM_PTH ---
PATIENT: Ana Laura Coley LOC: [facility] U#:[id number] AGE/SX: 58/F ROOM: RE10/08/[address]: Ba Castillo MD : 1965 BED: DIS: 10/08/2023 SPEC #: [id number] RECD: 10/08/23 12:52 STATUS: DWIGHT RE #: [id number] ADITI: 10/08/23 10:[address]: Ba Castillo DEPT: Surgical Specimen RECD BY: Marianna Spann ENTERED: 10/08/23 12:54 SP TYPE: STOMACH OTHR DR: Patricio Frank DNP Tissues: 1 - BIOPSY BOWEL 2 - STOMACH BIOPSY 3 - STOMACH BIOPSY 4 - ESOPHAGUS BIOPSY Procedures: GROSS AND MICRO LEVEL 4 Comments: [id number]
[2023-10-08 10:33] VITALS: BP 105/65; PULSE 95; RESP 16; TEMP 36.6; O2SAT 95
--- NOTE | 2023-10-08 10:51 | W.ANESPOSTOP ---
Postoperative Evaluation Date, Time and Location Date Performed: 10/08/23 Time Performed: 10:46 Patient Location: Day Surgery Unit Vital Signs Most Recent Imported Vital Signs: Most Recent Vital Signs Temp Pulse Resp BP Pulse Ox 36.6 C 95 H 16 105/65 95 10/08/23 10:33 10/08/23 10:33 10/08/23 10:33 10/08/23 10:33 10/08/23 10:33 Pain Score Most Recent Pain Score: Most Recent Pain Score Pain Level 0 10/08/23 10:33 Assessment Mental Status: Awake (Alert & Oriented to Patient Baseline) Airway and Respiratory Function: Patent airway with normal (patient baseline) respiratory exam Cardiovascular Function: Hemodynamically Stable Hydration Status: Adequately Hydrated Nausea & Vomiting: No Nausea or Vomiting Pain: Pt. Denies Any Pain Peripheral Nerve Block: Patient did not receive a nerve block
[2023-10-08 10:59] VITALS: BP 115/68; PULSE 77; RESP 16; TEMP 36.6; O2SAT 97
== END 2023-10-08 09:10 | disposition home or self-care (01) ==
LOC: SUR 09:10
PROVIDERS: PCP Nurse Practitioner Family; Visit Provider Surgery
PROC: 0DJ68ZZ Inspection of Stomach, Via Natural or Artificial Opening Endoscopic (ICD-10-PCS; CPT 43235; principal; 2023-10-08 10:30)
DX: R10.9 Unspecified abdominal pain (principal); Z87.19 Personal history of other diseases of the digestive system; K29.70 Gastritis, unspecified, without bleeding; K22.89 Other specified disease of esophagus
CPT/HCPCS: 43239; 88305; J2001; J2405; J2704

== ENCOUNTER 2024-08-27 17:11 | Outpatient (REF) | payer OTHER, SELFPAY ==
[2024-08-27 21:15] LABS: Anion Gap 8.5 mmol/L (3-11); BUN 16 mg/dL (7-18); CO2 25.5 mmol/L (21.0-32.0); CREATININE 0.9 mg/dL (0.55-1.02); Calcium 9.3 mg/dL (8.5-10.1); Chloride 106 mmol/L (98-107); Glucose 91 mg/dL (74-106); Potassium 4.2 mmol/L (3.5-5.1); Sodium 140 mmol/L (136-145)
[2024-08-27 21:45] LABS: Bilirubin Negative (Negative); Blood Small (Negative); Clarity Clear (Clear); Glucose Negative (Negative); Ketones Negative (Negative); Leukocyte Esterase Negative (Negative); Nitrite Negative (Negative); Specific Gravity 1.025 (1.005-1.025); Urobilinogen 0.2 mg/dL (Up to 0.2); pH 5.5 (5-8)
[2024-08-27 21:58] LABS: Bacteria Negative HPF (Negative); C & S Indicated? No; Casts Negative LPF (Negative); Crystals Negative HPF (Negative); Epithelial Cells Rare HPF (Negative); Mucus Negative (Negative); RBC 0-2 HPF (0-2); WBC 0-2 HPF (0-5)
== END 2024-08-27 17:12 | disposition home or self-care (01) ==
LOC: LBN 17:11
PROVIDERS: PCP Nurse Practitioner Family; Visit Provider Nurse Practitioner Family
DX: R31.9 Hematuria, unspecified (principal); R39.9 Unspecified symptoms and signs involving the genitourinary system; N39.0 Urinary tract infection, site not specified; N12 Tubulo-interstitial nephritis, not specified as acute or chronic
CPT/HCPCS: 80048; 81003; 81015; 85025

== ENCOUNTER 2024-10-13 06:18 | Day surgery (SDC) | payer OTHER, SELFPAY ==
--- NOTE | 2024-10-12 05:42 | W.PM.DSUDISC ---
Date of service: 10/13/24 Discharge Plan Disposition Patient Disposition: Home Condition: Good Discharge Details Reason For Visit: screening colonoscopy Attending Provider: Ba Castillo Primary Care Provider: Patricio Winston Home Meds and New Rx's Prescriptions: Continued omeprazole 20 mg capsule,delayed release(DR/EC) 20 mg PO DAILY Qty: 90 4RF Zepbound 2.5 mg/0.5 mL pen injector 2.5 mg subcut QWEEK Qty: 2 0RF Rx Instructions: for 4 weeks Discharge Instructions Instructions: Colon polyps, Diverticulosis Additional Instructions: Ana Laura, I hope you make a quick recovery from the procedures today. Everything went very smoothly. Your upper endoscopy is reassuring, and there is only mild areas of inflammation in your stomach consistent with mild gastritis. I would continue taking the omeprazole. I did some biopsies all around her stomach and your GE junction just like last time to make sure nothing else is contributing to your symptoms. I found 5 polyps during your colonoscopy, and I removed these all today. They are all small, and will be sent off for testing. As we knew before hand, he also have some diverticulosis. Once have the results of all the biopsies in the polyp report I will be in touch. If you need anything in the meantime, please do not hesitate to call or ask at any point. 1. If tolerated, consume a soft, low fiber diet for 1-2 days. 2[address] Do not drive, drink alcohol, operate machinery, make critical decisions, or do activities that require coordination or balance for 24 hours. 3. Because air was put into your colon during the procedure, expelling air from your rectum (passing gas or farting) is normal. 4. You may not have a bowel movement for 1-3 days because of the colonoscopy prep. This is normal. 5. Go directly to the emergency room if you notice any of the following: Develop chills (warm to touch), or if you have a thermometer and your temperature is above 101 Difficulty breathing or difficultly swallowing Persistent vomiting Severe abdominal pain, other than gas cramps Severe chest pain Black, tarry stools Any bleeding ? exceeding one tablespoon 6. Call your physician if the site where your intravenous was started becomes red, swollen, painful, and warm to touch. 7. Your physician has reviewed your pre-procedure medications. Please continue to take those medications as previously ordered. You will be given specific information/education regarding any changes to your medications before leaving. Activity:: Activity as Tolerated Diet:: As Tolerated Discharge Orders Discharge Orders: Discharge Order (Routine); Ordered 10/12/24 Ordered By: Ba Castillo DS: Diagnosis Discharge Diagnosis (1) Encounter for screening colonoscopy: Status: Acute Asessment and Plan: Follow-up on biopsy and polypectomy results
--- NOTE | 2024-10-12 05:43 | COLE_ITS ---
Date of service: 10/13/24 Time of Service: 08:24 Colonoscopy Report Date of procedure: 10/13/24 Pre-op diagnosis general: screening colonoscopy Post-op diagnosis procedure note: other (Gastritis, colon polyps, diverticulosis) Procedure: colonoscopy Surgeon: Ba Castillo Anesthesia Type: General:No Airway Estimated blood loss (mL): 10 Pathology: other (Random biopsies of the gastric antrum and body, biopsies of the GE junction; 0.25 cm flat polyp at 65 cm, 0.25 cm flat polyp at 40 cm, 0.25 cm flat polyp at 25 cm, 0.25 cm flat polyps at 20 cm x 2) Complications: None Disposition: same day Indications: Ana Laura is a 59 year old woman with a family history of colon cancer who needs her next screening colonoscopy. She also has longstanding left upper quadrant pain, and symptoms consistent with gastritis Prep: Miralax/Dulcolax Procedure Start Time: 07:30 Procedure End Time: 07:54 Retraction Time: 15 Findings: Normal-appearing esophagus, normal GE junction at 36 cm from the incisors, mild antral gastritis; sigmoid diverticulosis, colon polyps at 65, 40, 25, and 20 cm Procedure Description: After the initiation of anesthesia, and with the assistance of a bite block, I advanced a standard gastroscope through the mouth past the hypopharynx and into the esophagus.? Under the direct vision of the scope, I advanced down the esophagus towards the stomach.? There was very minimal irregularity of the Z- line at the GE junction measuring 36 cm from the incisors. Narrowband imaging was used. I did not see signs of Mckenna's esophagus. I advanced down into the stomach proper and insufflated into the rugae were obliterated. I performed retroflexion. I did not appreciate any hiatal hernias. I then sent the camera down around the incisura angularis towards the pylorus. There is mild inflammation of the gastric antrum consistent with gastritis. There were no discrete ulcers. I advanced down across the pylorus into the duodenum which was all normal and healthy appearing. I saw no evidence of any peptic duodenitis. I then brought the camera back into the stomach, and perform some nondirected biopsies of the gastric antrum and body to rule out microscopic gastritis. I brought the camera back up to the GE junction and biopsied this with cold forceps as well. There was minimal bleeding from all of the biopsy sites. The stomach was then emptied and the camera was removed. Ana Laura was then rolled into the left lateral decubitus position. I began by performing an external anorectal exam.? Perineum and skin were normal, as was the anal verge.? There was no evidence of external hemorrhoids.? Next, I performed a digital rectal exam.? I did not appreciate any abnormal findings.? Next, I advanced a colonoscope into the rectal vault.? I performed retroflexion.? This appeared normal.? Using insufflation, I then advanced the colonoscope beyond the rectal folds and into the sigmoid colon before advancing towards the cecum.? The quality of the prep was excellent.? The scope was noted to be in the cecum by identification of the ileocecal valve and appendiceal orifice.? I then began withdrawing the colonoscope using repeated irrigation as necessary for full evaluation of the colonic mucosa. Around 65 cm from the anal verge was a 0.25 cm flat polyp. This was removed with cold forceps with minimal bleeding. Similarly, another 0.25 cm flat polyp was found at 40 cm, and another at 25 cm. These were both removed with cold forceps without issues. There was some sigmoid diverticulosis that started about 35 cm from the anal verge. This extended down to about 18 cm beyond the anal verge. At 20 cm, there were 2 other polyps. Each were each 0.25 cm. Each of these was flat, and these were removed with cold forceps and sent as a single specimen. Once the scope was withdrawn to the level of the rectum, great care was taken to examine portions of the rectal folds.? Finally, the scope was withdrawn and the patient was brought to the same-day surgery recovery unit as the anesthetic wore off. ?The findings and instructions were shared with the patient prior to discharge. [place] Bowel Prep [place] Bowel Prep Right Colon: 2 Left Colon: 3 Transverse Colon: 3 Total Score: 8
[2024-10-13 06:31] VITALS: BP 118/66; PULSE 84; RESP 20; TEMP 36.5; O2SAT 96
[2024-10-13] MEDS: Lactated Ringers 1,000 ML 80 ML IV (06:50)
--- NOTE | 2024-10-13 07:11 | ANES.PREOP_ITS ---
General Info Date of Service Date Performed: 10/13/24 Height: 5 ft 3 in Weight: 86.1 kg Body Mass Index (BMI): 33.6 Surgical Procedure: Operation Date: 10/13/24 07:35 Proposed Procedure Side Surgeon p Colonoscopy/Gastroscopy Ba Castillo MD Meds Allergies and Home Medications Allergies Allergy/AdvReac Type Severity Reaction Status Date / Time tramadol Allergy Intermediate Hives Verified 10/13/24 06:30 oxycodone AdvReac Intermediate . Verified 10/13/24 06:30 Home Medication ?Medication ?Instructions ?Recorded omeprazole 20 mg capsule,delayed 20 mg PO DAILY #90 caps 10/26/23 release tirzepatide (weight loss) 2.5 2.5 mg (0.5 mL) subcut QWEEK #2 mL 09/03/24 mg/0.5 mL subcutaneous pen injector (Zepbound) Current Visit Medications: Current Medications Generic Name Dose Route Start Last Admin Trade Name Freq PRN Reason Stop Dose Admin Ringer's Solution 1,000 mls @ 80 mls/hr 10/13/24 06:00 10/13/24 06:50 IV 10/13/24 23:59 80 mls/hr INFUSION MICHAEL Administration IV Miscellaneous Supplies 1 each 10/13/24 06:00 Iv Access IV 10/13/24 23:59 DIRECTED MICHAEL Ondansetron HCl 4 mg 10/12/24 05:45 Ondansetron 4 Mg/2 Ml Vial IVP 11/11/24 05:44 Q4H PRN PRN Nausea / Vomiting Sodium Chloride 0 ml 10/13/24 06:00 Normal Saline Flush 10 Ml Syr IV 10/13/24 23:59 PRN PRN Sodium Chloride 0 ml 10/13/24 06:00 Normal Saline 10 Ml Vial IJ 10/13/24 23:59 DIRECTED PRN Sterile Water 0 ml 10/13/24 06:00 Water,Injection,Sterile 10 Ml Vial IJ 10/13/24 23:59 DIRECTED PRN PFSH Active Problems Active Problems: Problem Status Onset Code Encounter for screening colonoscopy Acute Z12.11 BMI 35.0-35.9,adult Acute Z68.35 Diverticulitis Chronic K57.92 History of hyperthyroidism Acute Z86.39 Umbilical pain Acute R10.33 Personal history of nicotine dependence Acute Z87.891 Tubular adenoma of colon Acute D12.6 Sessile colonic polyp Acute K63.5 Helicobacter pylori gastritis Acute K29.70, B96.81 Abnormal mammogram of both breasts Acute R92.8 Medical History Medical History Cellulitis COVID-19 09/05/21 History of deviated nasal septum s/p sx GERD (gastroesophageal reflux disease) Surgical History Surgical History History of esophagogastroduodenoscopy (~10/2023) History of colonoscopy path sent Hx of nasal septoplasty History of X 2 S/P NELLY-BSO in [place]- benign etiology Tobacco Smoking/Tobacco Use Status: Former Tobacco Use Passive smoking exposure: Yes Second hand exposure: Yes Alcohol Alcohol Intake: never Substance Use Substance use: Never Substance use type: does not use Vital Signs and Lab Results Vital Signs Most Recent Vital Signs in EMR: Most Recent Vital Signs Temp Pulse Resp BP Pulse Ox 36.5 C 84 20 118/66 96 10/13/24 06:31 10/13/24 06:31 10/13/24 06:31 10/13/24 06:31 10/13/24 06:31 Lab Results Blood Type / Crossmatch: No Data to Display Complete Blood Count: No Data to Display Complete Metabolic Panel: No Data to Display Liver Function Panel: No Data to Display Coagulation Panel: No Data to Display Cardiac Panel: No Data to Display Arterial Blood Gas: No Data to Display Venous Blood Gas: No Data to Display Pancreas Panel: No Data to Display Thyroid Panel: No Data to Display Infectious Disease: No Data to Display Blood Cultures: No Data to Display Toxicology Panel: No Data to Display Imaging and Studies Imaging and Studies Study information below may be from another EMR and interpreted by another provider. Please see original notes in EMR for more complete details. EKG Summary: 10/26/22: Exam: Resting ECG Reason for Exam: sob Patient Location: E HR:98 bpm ECG Measurements Heart Rate 98 AXIS SC 159 P 73 QRSd 75 QRS 67 QT 332 T4 QTc 424 Conclusion Sinus rhythm...normal P axis, V-rate 60- 99 I have reviewed and I agree with the emergency room physician's ECG interpretatio Anesthesia Assessment and Plan Anesthesia History Personal History: No History of Anesthesia Complications Family History: No Family History of Anesthesia Complications Exercise Tolerance Exercise Tolerance: Metabolic Equivalents>4 Pertinent Negatives Pertinent Negatives: No Major Cardiovascular Symptoms or Complaints and No Major Pulmonary Symptoms or Complaints Cardiac & Pulmonary Exam Cardiac Exam: Normal S1/S2 Heart Sounds Pulmonary Exam: Clear Bilateral Breath Sounds Implantable Cardiac Device Does patient have a Pacemaker or an ICD?: No Airway Exam Known Difficult Airway: No Mallampati Class: 2 Mouth Opening: Normal (> 3cm) Thyromental Distance: Greater than 3 cm Neck Range of Motion: Full ROM Neck Circumference: Thick Teeth Condition: Normal Dentition ASA Classification ASA Score: ASA 2 Emergency Case?: No NPO Status NPO Status: NPO Clears >2 hours, Solids >8 hours Anesthesia Plan Resuscitation Status: Full Code Anesthesia Technique: General Anesthesia Airway Planned: Natural Airway Monitors Used: Standard Monitors Preoperative Comments:: EGD last year, tolerated well, no anesthetic concerns. Patient reports some mild nausea this morning.
[2024-10-13 07:13] VITALS: BMI 33.6
--- NOTE | 2024-10-13 07:42 | BOWEL_PTH ---
PATIENT: Ana Laura Coley LOC: [facility] U#:[id number] AGE/SX: 59/F ROOM: RE10/13/[address]: Ba Castillo MD : 1965 BED: DIS: 10/13/2024 SPEC #: [id number] RECD: 10/13/24 12:53 STATUS: DWIGHT RE #: [id number] ADITI: 10/13/24 07:[address]: Ba Castillo DEPT: Surgical Specimen RECD BY: Marianna Spann ENTERED: 10/13/24 12:54 SP TYPE: Bowel OTHR DR: Patricio Frank DNP Tissues: 1 - STOMACH BIOPSY 2 - STOMACH BIOPSY 3 - ESOPHAGUS BIOPSY 4 - BIOPSY BOWEL 5 - BIOPSY BOWEL 6 - BIOPSY BOWEL 7 - BIOPSY BOWEL Procedures: GROSS AND MICRO LEVEL 4 Comments: [id number]
[2024-10-13 08:20] VITALS: BP 118/66; PULSE 84; RESP 16; TEMP 36.5; O2SAT 96
--- NOTE | 2024-10-13 08:42 | W.ANESPOSTOP ---
Postoperative Evaluation Date, Time and Location Date Performed: 10/13/24 Time Performed: 08:40 Patient Location: Day Surgery Unit Vital Signs Most Recent Imported Vital Signs: Most Recent Vital Signs Temp Pulse Resp BP Pulse Ox 36.5 C 84 16 118/66 96 10/13/24 08:20 10/13/24 08:20 10/13/24 08:20 10/13/24 08:20 10/13/24 08:20 Pain Score Most Recent Pain Score: Most Recent Pain Score Pain Level 0 10/13/24 08:20 Assessment Mental Status: Awake (Alert & Oriented to Patient Baseline) Airway and Respiratory Function: Patent airway with normal (patient baseline) respiratory exam Cardiovascular Function: Hemodynamically Stable Hydration Status: Adequately Hydrated Nausea & Vomiting: No Nausea or Vomiting Pain: Pt. Denies Any Pain Peripheral Nerve Block: Patient did not receive a nerve block
[2024-10-13 08:50] VITALS: BP 125/71; PULSE 65; RESP 18; TEMP 36; O2SAT 98
== END 2024-10-13 09:05 | disposition home or self-care (01) ==
PROVIDERS: PCP Nurse Practitioner Family; Visit Provider Surgery
PROC: (CPT 45380; principal; 2024-10-13 07:30)
DX: Z12.11 Encounter for screening for malignant neoplasm of colon (principal); D12.4 Benign neoplasm of descending colon; Z80.8 Family history of malignant neoplasm of other organs or systems; K29.70 Gastritis, unspecified, without bleeding; K57.30 Diverticulosis of large intestine without perforation or abscess without bleeding; K22.89 Other specified disease of esophagus; K63.89 Other specified diseases of intestine
CPT/HCPCS: 45380; 88305; J2003; J2704

== ENCOUNTER 2024-11-12 00:50 | Outpatient (CLI) | payer OTHER, SELFPAY ==
--- NOTE | 2024-11-12 07:30 | DI.MAMMO_ITS ---
Exam(s) MAMMO SCREENING EXAM: MAMMO SCREENING CLINICAL HISTORY: screening,z12.39 TECHNIQUE: Bilateral full field digital CC and MLO mammographic images were obtained with 3D tomosyn thesis and utilizing computer aided detection (CAD). COMPARISON: Available for comparison. FINDINGS: Masses/Architectural Distortion: Stable bilateral breast nodules. No new nodules. No areas of archi tectural distortion. Microcalcifications: No suspicious pleomorphic-type are seen. Skin Thickening/Nipple Retraction: None. IMPRESSION: 1. No significant interval change with no specific features of malignancy noted. 2. Unless there is more urgent need, screening mammography is recommended, as per [employer] guidelines. BI-RADS Category 2 - Benign Findings Breast Density - Category B - Scattered areas of fibroglandular density Breast density category C or D implies that the patient has dense breast tissue. Dense breast tissue is very common and is not abnormal but dense breast tissue can make it harder to find cancer on a ma mmogram. Also, dense breast tissue may increase their breast cancer risk. This information about the result of the mammogram report was provided to the patient to raise their awareness. Use this report when you speak with the patient about their risks for breast cancer, which includes their family hist ory. At that time, you may recommend for more screening tests (Ultrasound or MRI) as they might be us eful based on their risk. A negative radiographic report should not delay biopsy if a dominant or clinically suspicious mass is present. Up to ten percent of cancers are not identified on mammography. A negative report may reinforce clinical impression. Adenosis and dense breasts may obscure an underlying neoplasm. False positive reports average 6 to 10%. Patient will receive a letter notifying them of these results.
== END 2024-11-12 01:10 ==
LOC: DI 00:51
PROVIDERS: PCP Nurse Practitioner Family; Visit Provider Nurse Practitioner Family
DX: Z12.31 Encounter for screening mammogram for malignant neoplasm of breast (principal); R92.323 Mammographic fibroglandular density, bilateral breasts; D24.1 Benign neoplasm of right breast; D24.2 Benign neoplasm of left breast
CPT/HCPCS: 77063; 77067

== ENCOUNTER 2024-12-16 11:26 | Emergency (ER) | payer OTHER, SELFPAY ==
[2024-12-16 11:31] VITALS: BP 128/82; PULSE 97; RESP 14; TEMP 36.4; O2SAT 95
--- NOTE | 2024-12-16 11:42 | ED.GENADUL_ITS ---
Discharge Plan Disposition Patient Disposition: Home Discharge Details Clinical Impression: Hand pain, right Primary Care Provider: Patricio Winston ED Provider: Jarrett Connolly Home Meds and New Rx's Prescriptions: Continued omeprazole 20 mg capsule,delayed release(DR/EC) 20 mg PO DAILY Qty: 90 4RF tirzepatide (weight loss) 5 mg/0.5 mL pen injector 5 mg subcut QWEEK Qty: 2 6RF Discharge Instructions Additional Instructions: Using the emergency department for your hand pain. Your x-ray showed no sign of any fractures. You may continue using your hand under this Chris wrap. Please return if you develop fevers streaking signs of infection or have any worsening pain. Discharge Data Discharge Date/Time-TO BE ENTERED AT DEPARTURE: 12/16/24 12:30 HPI General Date/Time Provider Initiated Documentation: 12/16/24 11:31 . HPI Narrative: MDM This is a quite well-appearing normothermic and not tachycardic 59-year-old [id number] female with traumatic right hand pain concerning for fractu re versus bony contusion for which patient will undergo plain films. No erythema to suggest cellulitis. No fluctuance to suggest abscess. No pain out of proportion to suggest necrotizing soft tissue infection. Given intact range of motion my suspicion is low for dislocation and fractures however will obtain x-rays. Patient has a warm well-perfused right upper extremity and has had no recent PICC lines nor receiving IV drug user so I suspicion for upper extremity DVT is low suggestive feel she requires a duplex study. Given intact sensation motor function I am not not concern for CVA so I feel the patient would be a candidate for lytics. Furthermore patient had trauma making CVA less likely. 12/17/24 Late charting due to patient care. Patient had reassuring XRs. She received treatment w/Chris wrap, recommendation for rest, ice, and oral non-narcotic analgesia. We discussed return indication including working pain, fevers, or decrease ROM. She understood her return indications and was discharge with an empiric trial of expectant outpatient management. HPI The patient presents for evaluation of right pinky finger injury. She reports an incident where her right pinky finger was caught in a door, resulting in immediate pain, swelling, and bruising. The injury occurred at approximately 10:20 AM. She is right-handed and experiences significant discomfort in the affected area. She is not currently on any anticoagulant therapy. There is no history of recent falls or head trauma. She was able to work today without any issues. Exam General: Well-appearing in no acute distress speaking in complete sentences. Head: Normocephalic, atraumatic. Eye: Extraocular eye movements intact. No conjunctival injection. No scleral icterus. Ear, nose, mouth, throat: Grossly normal inspection. Normal voice, handling secretions normally. Neck: Trachea midline. Cardiovascular: Well-perfused distal extremities. Respiratory: Nonlabored respiration. Gastrointestinal: Nondistended abdomen. Musculoskeletal: Right hand warm well-perfused intact sensation motor function across radial, median, ulnar nerve distributions. Mild tenderness on ulnar side of right hand primarily dorsal aspect at the level of the little finger. No obvious deformities. No ecchymoses. No lacerations. No erythema. No fluctuance. Right little finger with intact strength across the MCP, PIP, and DIP joints. No obvious signs of dislocation. No signs of trauma. Skin: Normal for age and race, grossly normal temperature and turgor. No acute rash. Neurologic: Alert and appropriate, no apparent acute deficits. Psychiatric: Mood and manner are appropriate. Grooming and personal hygiene are appropriate. Related Data Home Medications ?Medication ?Instructions ?Recorded ?Confirmed omeprazole 20 mg capsule,delayed 20 mg PO DAILY #90 caps 10/17/24 12/16/24 release tirzepatide (weight loss) 5 mg/0.5 5 mg (0.5 mL) subcut QWEEK #2 mL 12/16/24 12/16/24 mL subcutaneous pen injector Previous Rx's ?Medication ?Instructions ?Recorded omeprazole 20 mg capsule,delayed 20 mg PO DAILY #90 caps 10/17/24 release tirzepatide (weight loss) 5 mg/0.5 5 mg (0.5 mL) subcut QWEEK #2 mL 12/16/24 mL subcutaneous pen injector Allergies Allergy/AdvReac Type Severity Reaction Status Date / Time tramadol Allergy Intermediate Hives Verified 12/16/24 11:35 oxycodone AdvReac Intermediate . Verified 12/16/24 11:35 General Stated Complaint: Orthopedic AFSANEH: 4 Course Vital Signs Vital signs: Vital Signs Temperature 36.4 C 12/16/24 11:31 Pulse 97 H 12/16/24 11:31 Respiratory Rate 14 12/16/24 11:31 Blood Pressure 128/82 12/16/24 11:31 Pulse Oximetry 95 12/16/24 11:31 Temperature 36.4 C 12/16/24 11:31 Temperature Source Oral 12/16/24 11:31 Pulse 97 H 12/16/24 11:31 Respiratory Rate 14 12/16/24 11:31 Blood Pressure 128/82 12/16/24 11:31 Blood Pressure Position Sitting 12/16/24 11:31 Pulse Oximetry 95 12/16/24 11:31 Oxygen Delivery Method Room Air 12/16/24 11:31 Oxygen Flow Rate 0 12/16/24 11:31 Medical Decision Making Quality:SDOH Health Related Social Needs: No Data to Display PFSH All Active Problems (Updated 12/16/24 @ 11:58 by Jarrett Connolly MD) Hand pain, right (Acute) BMI 35.0-35.9,adult (Acute) Diverticulitis (Chronic) History of hyperthyroidism (Acute) Umbilical pain (Acute) worse at night Personal history of nicotine dependence (Acute) [id number]-year history Tubular adenoma of colon (Acute) Sessile colonic polyp (Acute) 11/2021-due in 2026 Helicobacter pylori gastritis (Acute) 11/2021-EGD and biopsy, per general surgery at [facility], treated with triple therapy Abnormal mammogram of both breasts (Acute) Bilateral US recommended in 04/2022 for f/u per radiologogist Medical History (Updated 12/16/24 @ 11:58 by Jarrett Connolly MD) Cellulitis COVID-19 09/05/21 History of deviated nasal septum s/p sx GERD (gastroesophageal reflux disease) Surgical History (Updated 10/20/24 @ 08:[address]) History of esophagogastroduodenoscopy (~10/2023) History of colonoscopy (~10/2024) path sent Hx of nasal septoplasty History of X 2 S/P NELLY-BSO in [place]- benign etiology Family History Mother Colon cancer Heart disease Hypertension Stroke Father , 83 Cancer Heart disease Stroke Sister No problems noted. Son No problems noted. Daughter No problems noted. Social History Smoking/Tobacco Use Status: Former Tobacco Use Quit Date: 08/06/22 Tobacco: How many years used: 40 Second Hand Exposure: Yes Smoking risk assessment performed?: Yes Alcohol Intake: never Drug use: Never Substance use type: does not use Caregiver/Support person: No Household members: significant other Housing: house Communication Needs: None Do you need help understanding health information?: Never Pets and animals: Yes Pets and animals: cat(s) Sexually active: Yes Do you think of yourself as: straight/heterosexual Current gender identity: female What is your relationship status?: living with partner How often do you talk on the phone with friends or family?: three or more times per week How often do you get together with friends or relatives?: three or more times per week How often do you attend methodist or denominational services?: decline to answer Do you belong to any clubs or organized social groups?: no Panel score (0-1 are the most socially isolated patients): 2 What type of physical activity do you participate in: walking Duration: 60-90 minutes/day Frequency: 5-6 times per week Cait/Worship: No preference Special cait needs: No Seatbelt use: always Helmet use: Yes Helmet use: sometimes Drive intox or ride w/intox fence post driver: No Do you feel safe at home: Yes Do you feel safe in your relationship?: Yes
[2024-12-16] MEDS: Acetaminophen 500 MG TAB 1000 MG PO (11:48)
[2024-12-16] MEDS: Ibuprofen 600 MG TAB PO (11:48)
--- NOTE | 2024-12-16 12:02 | DI.RAD_ITS ---
Exam(s) XR HAND RT COMPLETE EXAM: XR HAND RT COMPLETE CLINICAL HISTORY: Right ulnar hand pain. TECHNIQUE: 2D digital imaging was performed of the right hand. Three images were obtained. AP, late ral and oblique views were obtained. COMPARISON: CR XR HAND RT COMPLETE from 03/15/2021 FINDINGS: BONES: No acute fracture is present. No bony destructive lesion is seen. JOINTS: No dislocation present. Mild degenerative changes are seen in the hand characterized by joint space narrowing and osteophytes, predominantly involving the PIP and DIP joints of the fingers. SOFT TISSUE: Normal. IMPRESSION: Mild osteoarthritis of the right hand. DATA REPOSITORY: RADIATION DOSE DELIVERED:
== END 2024-12-16 12:30 | disposition home or self-care (01) ==
PROVIDERS: Emergency Provider Emergency Medicine; PCP Nurse Practitioner Family
DX: M79.641 Pain in right hand (principal); W23.2XXA Caught, crushed, jammed or pinched between a moving and stationary object, initial encounter
CPT/HCPCS: 99283 ×2; 73130